=== PATIENT | male | born 1945 | race Caucasian/White ===

== ENCOUNTER 2024-08-24 18:53 | Emergency (ER) | payer MEDICARE, OTHER ==
[~2024-08-24] VITALS: Ht 175.3 cm; Wt 69.8 kg
[2024-08-24 19:20] VITALS: BP 179/112; PULSE 65; RESP 15; O2SAT 97
--- NOTE | 2024-08-24 19:55 | RADIOLOGY REPORT ---
Exam: DI ABDOMEN,SINGLE VIEW(KUB) Indication: constipation Comparison: None Technique: 2 radiographic views of the abdomen. Findings: Moderate colonic stool. Nonspecific bowel-gas pattern. There is no definite evidence for pneumoperitoneum. No abnormal calcifications noted. Impression: Moderate colonic stool. Nonspecific bowel-gas pattern.
[2024-08-24] MEDS: docusate sod 100mg capsule PO ONE (21:02)
[2024-08-24] MEDS: polyethylene glycol 3350 17gm powd pack PO ONE (21:02)
--- NOTE | 2024-08-24 21:31 | Physician Documentation ---
History of Present Illness ~ Chief Complaint: Constipation Stated Complaint: CONSTIPATION Time Seen by MD: 20:26 HPI This is a 78-year-old male who presents with a proximally four days of constipation patient reports he has not had a bowel movement in his time. Patient reports he is passing gas. Patient reports no fever and no nausea or vomiting. Reports no other acute symptoms or concerns Medication Reconciliation Allergies: Coded Allergies: No Known Allergies (Unverified , 08/24/24) Scheduled Bisacodyl (Bisacodyl), 1 SUPP RC DAILY Polyethylene Glycol 3350 (Miralax), 17 GM PO DAILY Past Medical History Past Medical History: No Pertinent History Review of Systems ROS Constipation as stated above in the HPI, otherwise all systems are reviewed and negative. Physical Exam Vital Signs: Temperature: 96.3, Source: Temporal, Heart Rate: 65, Respiratory Rate: 15, BP: 179/112, Pulse Oximetry: 97, Weight: 69.750 Physical Exam VITALS: Reviewed and as above. GENERAL: Alert, nontoxic appearing, no apparent distress. RESPIRATORY: No increased work of breathing, no respiratory distress, speaking in full clear sentences, clear lung sounds in all velez CV: Regular rate rhythm no murmur GI: Mild tenderness to palpation of lower abdomen otherwise no rebound, no guarding, soft, nondistended, bowel sounds present Progress Results/Orders Results/Orders Completed Orders - RAKESH RUIZ [employer] Polyethylene Glycol 3350 Pkt (Miralax Pa (08/24/24 21:00) Docusate Sod Capsule (Colace Capsule) (08/24/24 20:55) Medications Received in ER Medications (Trade) Dose Ordered Sig/Mica Route PRN Reason Start Time Stop Time Status Last Admin Dose Admin (Miralax packet) 17 gm HS ONCE PO 08/24/24 21:00 08/24/24 21:01 DC 08/24/24 21:02 17 GM (Colace capsule) 100 mg ONCE ONCE PO 08/24/24 20:55 08/24/24 20:57 DC 08/24/24 21:02 100 MG Vital Signs 08/24/24 08/24/24 19:20 21:35 Temp 96.3 96.3 Pulse 65 Resp 15 B/P (MAP) 179/112 Pulse Ox 97 EKG/XRAY/CT/US/VASC/MRI Abdominal X-Ray : Additional Comment Exam: DI ABDOMEN,SINGLE VIEW(KUB) Indication: constipation Comparison: None Technique: 2 radiographic views of the abdomen. Findings: Moderate colonic stool. Nonspecific bowel-gas pattern. There is no definite evidence for pneumoperitoneum. No abnormal calcifications noted. Impression: Moderate colonic stool. Nonspecific bowel-gas pattern. Electronically Signed by:IKER GARCIA MD Date & Time: 08/24/241951 Dictated by: IKER GARCIA MD Dictation date and time: 08/24/241951 I have reviewed and agree with the radiology report. I have reviewed and interpreted the imaging as: No air-fluid levels Medical Decision Making Findings This is an otherwise well-appearing 78-year-old male who presents with a four days of constipation, physical exam did not demonstrate significant abdominal tenderness and a abdominal x-ray did not demonstrate evidence to suggest bowel obstruction, it is reassuring patient reports still passing gas and bowel sounds were present. Remainder of physical exam benign. I have low suspicion for bowel obstruction or other intra-abdominal surgical emergency. Patient is appropriate for outpatient follow up. Patient to be treated with outpatient course of MiraLax and stool softeners. Patient provided careful return to care precautions and follow up instructions which he verbalized understanding of. Patient advised to increase fiber and fluid intake and provided home care instructions for constipation which he verbalized understanding of. Diff Dx Pain:Considerations: Include: Appendicitis, Bowel obstruction, Diverticular disease, Gastritis, Hernia, Inflammatory BD, Ischemic bowel, Testicular torsion, Urinary obstruction, Urinary tract infection, Urolithiasis Departure Disposition: HOME / SELF CARE / HOMELESS Impression: Primary Impression: Constipation Qualified Codes: K59.00 - Constipation, unspecified Condition: Improved Discharge Instructions: Constipation, Adult Additional Instructions: Please take the laxatives as prescribed. Please follow up with your primary care provider in the next few days. Please return to the emergency department for any new or worsening concerning symptoms including but not limited to worsening pain in her abdomen or if you began vomiting or stop passing gas. Referrals: NO PRIMARY CARE PROVIDER (PCP) Prescriptions Docusate Sodium (Docusate Sodium) 100 Mg Capsule 1 CAP PO DAILY for constipation for 30 Days, #30 CAP 0 Refills Prov: RAKESH RUIZ 08/25/24 Bisacodyl (Bisacodyl) 10 Mg Supp.rect 1 SUPP RC DAILY for constipation for 4 Days, #4 SUPP 0 Refills Prov: RAKESH RUIZ 08/24/24 Polyethylene Glycol 3350 (Miralax) 17 Gram/Dose Powder 17 GM PO DAILY for constipation, #255 GM 0 Refills dissolve in water Prov: RAKESH RUIZ 08/24/24 Education Educated: Patient, Family Educated regarding: diagnosis, treatment, prognosis, need for follow up Signature Scribe Signature: No scribe Attestation: The note accurately reflects work and decisions made by me.TOPHER Bhardwaj 08/25/24 02:17 RAKESH RUIZ [facility] Aug 24, 2024 21:31
[2024-08-24] MEDS ORDERED: POLY119P2 PO (21:33)
[2024-08-24] MEDS ORDERED: BISA10SU11 RC (21:33)
[2024-08-24 21:35] VITALS: TEMP 96.3
[2024-08-25] MEDS ORDERED: DOCU100C41 PO (02:14)
== END 2024-08-24 21:42 | disposition home or self-care (01) ==
LOC: ER 18:54
DX: K59.00 Constipation, unspecified (principal); Z79.899 Other long term (current) drug therapy
CPT/HCPCS: 74018; 99283

== ENCOUNTER 2024-08-26 09:50 | Inpatient (IN) | payer OTHER, MEDICARE ==
[~2024-08-26] VITALS: Ht 175.3 cm; Wt 93.8 kg
[~2024-08-26 09:50] MED LIST: BISA10SU11 RC; DOCU100C41 PO; POLY119P2 PO
--- NOTE | 2024-08-26 12:10 | Physician Documentation ---
History of Present Illness General Chief Complaint: Constipation Stated Complaint: CONSTIPATION Time Seen by MD: 12:02 History of Present Illness Initial Comments The patient is a 78-year-old male who presents with abdominal pain and constipation (his last bowel movement was one week ago). Reports that he does not normally get constipation. He did have a remote herniorrhaphy on his abd omen. He has not had any vomiting. He takes tamsulosin for BPH and something for indigestion, his only medications. Medication Reconciliation Allergies: Coded Allergies: No Known Allergies (Unverified , 08/26/24) Scheduled Bisacodyl (Bisacodyl), 1 SUPP RC DAILY Docusate Sodium (Docusate Sodium), 1 CAP PO DAILY Polyethylene Glycol 3350 (Miralax), 17 GM PO DAILY Past Medical History Past Medical History: No Pertinent History Review of Systems ROS Constitutional: Denies chills, fatigue, fever, weight gain or weight loss. HEENT: Denies hearing loss, sinus pressure or visual changes. Respiratory: Denies cough, shortness of breath or wheezing. Cardiovascular: Denies chest pain, pain while walking (claudication), edema or palpitations. Gastrointestinal: Central abdominal pain and constipation. Genitourinary: Denies painful urination (dysuria), excessive amount of urine (polyuria) or urinary frequency. Metabolic/Endocrine: Denies cold intolerance, heat intolerance, excessive thirst (polydipsia) or excessive hunger (polyphagia). Neurological: Denies dizziness, extremity numbness, extremity weakness, headaches, seizures or tremors. Psychiatric: Denies anxiety or depression. Integumentary: Denies breast discharge, breast lump, hives, mole change(s), rash or skin lesion. Musculoskeletal: Denies back pain, joint pain, joint swelling or neck pain. Hematologic: Denies easily bleeding, easily bruises, lymphedema or issues with blood clots. Immunologic: Denies food allergies or seasonal allergies. Physical Exam Physical Exam Vital Signs: Temperature: 97.6, Source: Temporal, Heart Rate: 68, Respiratory Rate: 15, BP: 154/97, Pulse Oximetry: 96, Weight: 90.700 Oxygen Flow Rate: 0 Physical Exam Physical Exam Vitals and nursing note reviewed. Constitutional: General: Patient is awake, alert, oriented x 4 in no acute distress and well appearing. Speech is clear and lucid. Appearance: Normal appearance. Patient is not ill-appearing, toxic-appearing or diaphoretic. HENT: Head: Normocephalic and atraumatic. Mouth/Throat: Mouth: Mucous membranes are moist. Pharynx: Oropharynx is clear. Eyes: General: No scleral icterus. Extraocular Movements: Extraocular movements intact. Pupils: Pupils are equal, round, and reactive to light. Neck: Supple, no Kernig or Brudzinski sign. Cardiovascular: Rate and Rhythm: Normal rate and regular rhythm. Heart sounds: No murmur heard. Pulmonary: Effort: No respiratory distress. Breath sounds: No wheezing, rhonchi or rales. Abdominal: General: There is no distension. Palpations: There is no fluid wave, hepatomegaly or mass. Tenderness: There is no abdominal tenderness. There is no guarding. Musculoskeletal: General: No swelling or deformity. Skin: Coloration: Skin is not jaundiced. Findings: No erythema or rash. Neurological: Mental Status: Patient is alert. Progress Results/Orders Results/Orders Orders - EVELINE MEJIA MD Ct Abdomen Pelvis (08/26/24 12:24) Page Hospitalist (08/26/24 14:32) Completed Orders - EVELINE MEJIA MD Ct Abdomen Pelvis (08/26/24 12:24) CMP (08/26/24 12:02) Cbc/Diff (08/26/24 12:02) Lipase (08/26/24 12:02) LA (08/26/24 12:02) Iohexol 300mg/Ml 100ml Inj. (Omnipaque-3 (08/26/24 12:14) Vital Signs 08/26/24 08/26/24 08/26/24 10:13 11:03 11:07 Temp 97.6 Pulse 78 68 Resp 18 15 15 B/P (MAP) 137/74 154/97 (116) Pulse Ox 96 96 O2 Flow Rate 0 Laboratory Tests Test 08/26/24 12:40 White Blood Count 6.7 Red Blood Count 4.37 L Hemoglobin 13.9 L Hematocrit 41.0 L Mean Corpuscular Volume 93.8 Mean Corpuscular Hemoglobin 31.8 H Mean Corpuscular Hemoglobin Concent 33.9 Red Cell Distribution Width 13.9 Platelet Count 88 L Mean Platelet Volume 10.3 Neutrophils (%) (Auto) 81.5 H Lymphocytes (%) (Auto) 8.2 L Monocytes (%) (Auto) 9.7 Eosinophils (%) (Auto) 0.3 Basophils (%) (Auto) 0.3 Neutrophils # (Auto) 5.5 Lymphocytes # (Auto) 0.6 L Monocytes # (Auto) 0.7 Eosinophils # (Auto) 0.0 Basophils # (Auto) 0.0 CBC Comment Sodium Level 135 Potassium Level 3.5 Chloride Level 102 Carbon Dioxide Level 26.3 Anion Gap 7 L Blood Urea Nitrogen 13 Creatinine 0.80 Estimated GFR/1.73 m2 > 90 BUN/Creatinine Ratio 16.3 Glucose Level 105 H Lactic Acid Level 0.8 Calcium Level 8.9 Total Bilirubin 0.7 Aspartate Amino Transf (AST/SGOT) 15 Alanine Aminotransferase (ALT/SGPT) 26 Alkaline Phosphatase 59 Total Protein 6.3 L Albumin 3.4 Globulin 2.9 Albumin/Globulin Ratio 1.2 Lipase 13 L Chemistry Comments Medical Decision Making Findings CT scan confirms constipation without evidence of bowel obstruction. There is a suspicious finding at the tail of the pancreas which may represent malignancy. The patient lives in [place], [place], about 100 miles he is to here. His P[facility] is in [place] [facility]. I feel it would benefit him to get his MRI as an inpatient here while being treated for his constipation which failed outpatient treatment is he was seen here three days ago without relief. Departure Disposition: ADMITTED INPATIENT Admitted to Inpatient Unit: to hospitalist Admission Level of Care: Med/Surg Impression: Primary Impression: Pancreatic abnormality Additional Impression: Constipation Condition: Stable Referrals: NO PRIMARY CARE PROVIDER (PCP) Signature Scribe Signature: . Attestation: . EVELINE MEJIA MD Aug 26, 2024 12:10
[2024-08-26] MEDS ORDERED: iohexol 300mg/ml 100ml inj. ONE (12:14)
[2024-08-26 12:58] LABS: MEAN PLATELET VOLUME 10.3 FL (7.4-10.4); RED CELL DISTRIBUTION WIDTH 13.9 % (11.5-14.5)
--- NOTE | 2024-08-26 13:01 | RADIOLOGY REPORT ---
CLINICAL INFORMATION: Pain. No bowel movement for 7 days. TECHNIQUE: Axial CT images of the abdomen and pelvis were obtained after the uneventful administrati on of 100 mL Omnipaque 300 IV contrast. Coronal and sagittal reformatted images were obtained, review ed, and stored. All CT scans at this medical facility are performed using dose modulation techniques as appropriate to a performed exam including the following: Automated exposure control was utilized; adjustment of the MA and/or KV according to patient size; and use of iterative reconstruction technShared Spectrum ue. CTDIvol = 22.47 mGy DLP = 1289.14 mGy-cm COMPARISON: Abdominal radiographs dated 08/24/2024. FINDINGS: Lung bases: Dependent atelectasis in the lung bases. Trace pericardial effusion. Liver: Multiple small low-density lesions in the liver, likely cysts, although some are too small to characterize. Trace perihepatic fluid. Biliary: No calcified gallstones or biliary ductal dilatation. Spleen: Unremarkable. Pancreas: There is hypo enhancement of the pancreatic tail with moderate adjacent stranding, involvin g an area measuring up to 3.4 x 2.7 cm. Malignancy not excluded. Adrenal glands: Unremarkable. No mass. Kidneys: Bilateral parapelvic cysts and small cortical cysts. No hydronephrosis. Aorta/Vascular: Dense atherosclerotic calcification. No abdominal aortic aneurysm. Retroperitoneum: Small subcentimeter para-aortic and interaortocaval lymph nodes. Fluid density struc ture along the anterior aspect of the left pelvic sidewall measuring up to 1.8 cm in greatest dimensi on of uncertain etiology possible duplication cyst, abutting the left external iliac vein. Bowel/mesentery: Nonspecific nondilated fluid-filled small bowel loops. No small bowel obstruction. A ppendix is not visualized. Large amount of stool throughout the colon. Diverticulosis of the rectosig moid colon without visualized adjacent inflammatory changes to suggest diverticulitis. Pelvic organs: Grossly unremarkable. Bladder: Unremarkable. No mass. Abdominal wall: Small to moderate fat containing supraumbilical ventral hernia. Mild stranding within the hernia sac. Strangulation not excluded. Bones: Postsurgical changes of open reduction internal fixation of the right hip with trochanteric na il and femoral neck screw visualized. The fracture is not united at this time. There is soft tissue e tom stranding along the superficial fascial plane overlying the lateral aspect of the right thigh mu sculature with focal peripherally enhancing fluid collection measuring up to 3 cm in greatest dimensi on. IMPRESSION: 1. Large amount of stool throughout the colon. 2. Nonspecific nondilated fluid-filled small bowel loops. Findings may be seen with ileus or enteriti s in the appropriate clinical setting. No small bowel obstruction. 3. Scattered colonic diverticula without adjacent inflammatory changes to suggest diverticulitis. 4. Focal area of hypo enhancement and stranding of the pancreatic tail, suspicious for malignancy. C orrelate with clinical findings. MRI without and with contrast pancreatic protocol could be obtained to further characterize if clinically indicated. 5. Small to moderate fat containing supraumbilical ventral hernia with mild stranding within the jean ia sac. Strangulation of the hernia not excluded. Correlate with clinical findings. 6. Fluid density structure along the left pelvic sidewall abutting the left external iliac vein, poss ible duplication cyst or other cyst. 7. Postsurgical changes of open reduction internal fixation of the right hip with stranding and edema along the subcutaneous tissues more focal peripherally enhancing fluid collection overlying the supe rficial fascial plane of the lateral aspect of the proximal right thigh musculature, possible postope rative collection or hematoma. Abscess can not be excluded in the appropriate clinical setting. Corre late with clinical findings. 8. Additional findings as described above.
[2024-08-26 13:07] LABS: CREATININE 0.80 MG/DL (0.60-1.10); TOTAL CARBON DIOXIDE 26.3 MMOL/L (24-32); eCRCL 76 ML/MIN; eGFR > 90 ML/MIN
[2024-08-26] MEDS ORDERED: magnesium Cl slow-release 64mg tablet PO PRN (15:00)
[2024-08-26] MEDS ORDERED: HYDROcodone/acetaminophen 5mg/325mg tablet PO PRN (15:00)
[2024-08-26] MEDS ORDERED: potassium Cl 20 mEq SR tablet PO PRN (15:00)
[2024-08-26] MEDS ORDERED: magnesium sulf-water 4G/100mL 100 ML IV PRN (15:00)
[2024-08-26] MEDS ORDERED: magnesium sulf-water 2g/50mL 50 ML IV PRN (15:00)
[2024-08-26] MEDS ORDERED: potassium Cl 40MEQ/1/2NS 520ml 520 ML IV PRN (15:00)
[2024-08-26] MEDS: normal saline 1000ml 1,000 ML IV SCH (15:31)
[2024-08-26] MEDS ORDERED: PEG 3350/Na sulf,bicarb,Cl/KCl oral sol 4 liter bottle PO ONE (15:50)
[2024-08-26 16:39] VITALS: BP 158/98; PULSE 67; RESP 14; TEMP 97.9; O2SAT 95
[2024-08-26] MEDS ORDERED: TAMS-55 PO (16:49)
[2024-08-26] MEDS ORDERED: OMEP40CA21 PO (16:50)
--- NOTE | 2024-08-26 18:41 | HISTORY AND PHYSICAL ---
History & Physical Providers to ~ History of Present Illness Reason for Admit\Complaint: Abdominal pain and constipation History of Present Illness Patient is 78-year-old male currently on Flomax and one indigestion pill. Patient is status post bilateral inguinal and ventral hernia repair which was done in 2008. He had his last colonoscopy around 62 years of age group which was normal. Patient was feeling nauseated but denied any episodes of vomiting and feeling fullness over abdomen. He mentioned to me that he is doing diet control but he feels that he is gaining weight. Abdomen pain is mainly located over ventral hernia site he is not able to pass the gas. Patient denied any fever or shaking chills. Patient's feels that since his prostate surgery he is urinating more and off and on incontinent. Patient denied any other symptoms no other associated or alleviating factors. Allergies: Coded Allergies: No Known Allergies (Unverified , 08/26/24) Home Medications Home Medications Active Reported Prilosec (Omeprazole) 40 Mg Capsule 1 Cap PO HS 30 Days Flomax* (Tamsulosin HCl) 0.4 Mg Cap.sr.24h 1 Cap PO HS 30 Days Past Medical History Past Medical History History of prostate cancer Past Surgical History Surgical History Comment History of bilateral inguinal hernia and ventral wall hernia repair. Past Social History Social History Comment Patient denied use of any alcohol tobacco or any recreational drug. He is able to ambulate lives by himself ROS ROS Review of system as mentioned above in HPI rest of the review of system unremarkable Exam Vitals: Vital Signs Date Time Temp Pulse Resp B/P (MAP) Pulse Ox O2 Delivery O2 Flow Rate FiO2 08/26/24 17:06 Room Air 0.0 08/26/24 16:39 97.9 67 14 158/98 (118) 95 General: General-patient not in any acute distress, alert awake oriented, chronically ill-appearing HEENT-atraumatic normocephalic, neck supple without elevated JVD, no thyromegaly or carotid bruit. No lymphadenopathy bilaterally. Eyes-no icterus or pallor seen in eyes Chest-clear to auscultation bilaterally, breathing nonlabored no tachypnea, no wheezing, no crepitation, no crackles. Heart-S1-S2 normal, regular heart rate no murmur Abdomen bowel sounds positive on auscultation, soft nondistended, no signs of acute peritonitis, signs of discomfort on palpation present over ventral wall hernia. no guarding, no rigidity Skin no active skin rash Neurology-grossly intact, nonfocal alert awake oriented Extremity- no pedal edema able to move all 4 extremities Psychiatry - patient is not confused or agitated cooperated during physical examination Diagnostic Data Last Recorded Lab Results: 08/26/24 1240 08/26/24 1240 Advance Care Planning Advanced Care plannin - 30 Minutes Additional Plan Patient is 78-year-old male currently on Flomax and one indigestion pill. Patient is admitted for severe constipation and abnormal CT scan results. ER provider ordered the CT scan abdomen and pelvis which showed, Large amount of stool throughout the colon.Nonspecific nondilated fluid-filled small bowel loops. Findings may be seen with ileus or enteritis in the appropriate clinical setting. No small bowel obstruction.Focal area of hypo enhancement and stranding of the pancreatic tail, suspicious for malignancy. Correlate with clinical findings. MRI without and with contrast pancreatic protocol could be obtained to further characterize if clinically indicated.Small to moderate fat containing supraumbilical ventral hernia with mild stranding within the hernia sac. Strangulation of the hernia not excluded. Patient's CT scan finding discussed with Dr. Baker who reviewed patient's imaging study results and not concerned about strangulation of ventral hernia. We will treat the patient for chronic constipation. GoLYTELY not available soap stud anymore ordered for constipation. We will continue to monitor patient's electrolyte when vitals. Patient's current condition is guarded further management depending on response to treatment I will continue to follow patient in a.m.. Code status discussed with the patient patient wishes to stay full code time spent in discussing code status 16 min. We will do the home medication reconciliation once updated in electronic medical record by nursing staff or pharmacist. Date of Service: Aug 26, 2024 Billing Provider: SHAYAN BARBOUR MD Common Visit Codes: 79078-SVNFEMP INP/OBS CARE (HIGH) Secondary Visit Codes: 64341-XEVUESIP CARE PLAN 30 MINUTES SHAYAN BARBOUR MD Aug 26, 2024 18:41
[2024-08-26 19:42] VITALS: BP 171/95; PULSE 82; RESP 19; TEMP 97.7; O2SAT 97
[2024-08-26] MEDS ORDERED: heparin, porcine 5000 units/ml vial SQ SCH (20:00)
[2024-08-26] MEDS: bisacodyl 10mg suppository rectal RC STA (21:51)
[2024-08-27] VITALS (7 sets, daily range): BP systolic 146–172; BP diastolic 90–101; PULSE 69–84; RESP 16–18; TEMP 97–98.7; O2SAT 94–97
[2024-08-27] MEDS: mineral oil 133ml enema RC PRN (01:25)
[2024-08-27 05:03] LABS: MEAN PLATELET VOLUME 10.0 FL (7.4-10.4); RED CELL DISTRIBUTION WIDTH 14.0 % (11.5-14.5)
[2024-08-27 05:11] LABS: CREATININE 0.72 MG/DL (0.60-1.10); TOTAL CARBON DIOXIDE 26.1 MMOL/L (24-32); eCRCL 85 ML/MIN; eGFR > 90 ML/MIN
[2024-08-27] MEDS: magnesium citrate 296ml oral solution PO ONE (08:50)
--- NOTE | 2024-08-27 13:00 | RADIOLOGY REPORT ---
Date: 08/27/2024 12:27 PM Examination: DI ABDOMEN,SINGLE VIEW(KUB) History: severe constipation Comparison: DI ABDOMEN,SINGLE VIEW(KUB) on DOS: 08/24/24 TECHNIQUE: Frontal views of the abdomen was obtained. FINDINGS: Gaseous distended loops of colon. The lung bases are unremarkable. No acute osseous abnormality identified. IMPRESSION: Nonspecific gas-filled loops of colon are visualized.
[2024-08-27] MEDS: pantoprazole 40mg Tablet.DR PO ONE (15:05)
[2024-08-27] MEDS: ondansetron/PF 4mg/2ml inj IV PRN (16:07)
[2024-08-27] MEDS: diatr meglu/diatrizoate 30ml oral sol.-(3 dose) bottle PO SCH (20:04)
--- NOTE | 2024-08-27 20:17 | PROGRESS NOTE ---
Daily Progress Note Providers to CC ~ Antibiotic Timeout Antibiotic Ordered?: No Subjective Patient was seen in his room he is still has not pass the stools even though he got the anemia, mineral oil enema, milk of magnesium and Dulcolax suppository. I ordered KUB in oral CT abdomen and pelvis. Patient was also concerned about acid reflux symptoms pantoprazole ordered. Patient's blood pressure elevated currently not on any hypertensive medication started on lisinopril. Objective Vital Signs Date Time Temp Pulse Resp B/P (MAP) Pulse Ox O2 Delivery O2 Flow Rate FiO2 08/27/24 18:00 98.7 77 18 161/100 (120) 97 Room Air 08/27/24 08:00 0.0 Result Diagram: 08/27/2443108/27/24 043 General-patient not in any acute distress, alert awake oriented, chronically ill-appearing HEENT-atraumatic normocephalic, neck supple without elevated JVD, no thyromegaly or carotid bruit. No lymphadenopathy bilaterally. Eyes-no icterus or pallor seen in eyes Chest-clear to auscultation bilaterally, breathing nonlabored no tachypnea, no wheezing, no crepitation, no crackles. Heart-S1-S2 normal, regular heart rate no murmur Abdomen bowel sounds positive on auscultation, soft , appear distended, no signs of acute peritonitis, signs of discomfort on palpation present over ventral wall hernia. no guarding, no rigidity Skin no active skin rash Neurology-grossly intact, nonfocal alert awake oriented Extremity- no pedal edema able to move all 4 extremities Psychiatry - patient is not confused or agitated cooperated during physical examination Problem\Assessment\Plan Patient is 78-year-old male currently on Flomax and one indigestion pill. Patient is admitted for severe constipation and abnormal CT scan results. # severe constipation- ER provider ordered the CT scan abdomen and pelvis which showed, Large amount of stool throughout the colon.Nonspecific nondilated fluid- filled small bowel loops. Findings may be seen with ileus or enteritis in the appropriate clinical setting. No small bowel obstruction.Focal area of hypo enhancement and stranding of the pancreatic tail, suspicious for malignancy. Correlate with clinical findings. MRI without and with contrast pancreatic protocol could be obtained to further characterize if clinically indicated. We will treat the patient for chronic constipation. GoLYTELY not available . he has not pass the stools even though he got the anemia, mineral oil enema, milk of magnesium and Dulcolax suppository. I ordered KUB in oral CT abdomen and pelvis. # abnormal CT scan findings- Small to moderate fat containing supraumbilical ventral hernia with mild stranding within the hernia sac. Strangulation of the hernia not excluded. Patient's CT scan finding discussed with Dr. Baker who reviewed patient's imaging study results and not concerned about strangulation of ventral hernia. # hypertension-lisinopril started today. We will continue to monitor patient's electrolyte when vitals. # hypokalemia we will do the replacement of potassium as per protocol # Code status discussed with the patient patient wishes to stay limited code he is okay with the CPR but does not want any intubation # home medication reconciliation updated in electronic medical record Patient's current condition is guarded further management depending on response to treatment I will continue to follow patient in a.m.. Date of Service: Aug 27, 2024 Billing Provider: SHAYAN BARBOUR MD Common Visit Codes: 95098-[id number] INP/OBS CARE(HIGH) SHAYAN BRABOUR MD Aug 27, 2024 20:17
[2024-08-27] MEDS: pantoprazole 40mg Tablet.DR PO SCH (21:28)
[2024-08-28 05:48] LABS: MEAN PLATELET VOLUME 10.3 FL (7.4-10.4); RED CELL DISTRIBUTION WIDTH 13.7 % (11.5-14.5)
[2024-08-28 06:00] VITALS: BP 134/89; PULSE 75; RESP 16; TEMP 97.3; O2SAT 96
[2024-08-28 06:15] LABS: CREATININE 1.02 MG/DL (0.60-1.10); TOTAL CARBON DIOXIDE 28.8 MMOL/L (24-32); eCRCL 60 ML/MIN; eGFR 71 ML/MIN
[2024-08-28 10:00] VITALS: BP 140/89; PULSE 71; RESP 18; TEMP 97.7; O2SAT 96
--- NOTE | 2024-08-28 11:41 | RADIOLOGY REPORT ---
CLINICAL INFORMATION: severe constipation. TECHNIQUE: Axial CT images of the abdomen and pelvis were obtained without IV contrast. Coronal and sagittal reformatted images were obtained, reviewed, and stored. Evaluation of the parenchymal organ s and vasculature is limited without IV contrast. Oral contrast was administered prior to the examina tion All CT scans at this medical facility are performed using dose modulation techniques as appropri ate to a performed exam including the following: Automated exposure control was utilized; adjustment of the MA and/or KV according to patient size; and use of iterative reconstruction technique. CTDIvol = 25.99 mGy DLP = 1386.24 mGy-cm COMPARISON: CT CT ABDOMEN PELVIS W/ IV CONTRAST on DOS: 08/26/24 FINDINGS: Lung Bases: Atelectasis in the lung bases. Small left pleural effusion. Liver: Multiple small low-density lesions in the liver, likely cysts, although some are too small to characterize. Trace perihepatic fluid. Biliary: Increased density in the gallbladder, likely vicarious excretion of contrast from the prior contrast enhanced CT exam. Spleen: Trace perisplenic fluid. Pancreas: There is fullness of the pancreatic tail corresponding to the area of previously seen hypo enhancement on the recent contrast enhanced CT exam. Malignancy not excluded. Adrenal glands: Unremarkable. No mass. Kidneys: Bilateral parapelvic cysts and small cortical cysts. No hydronephrosis no renal or ureteral calculi visualized. Aorta: Dense atherosclerotic calcification. No abdominal aortic aneurysm. Retroperitoneum: Small subcentimeter para-aortic and interaortocaval lymph nodes. Similar-appearing s mall fluid density structure along the left pelvic sidewall measuring up to 1.8 cm in greatest dimens ion, possible duplication cyst or other cyst. Bowel/mesentery: No small bowel obstruction. Contrast reaches the cecum at the time of imaging. Appen regino is not visualized. Large amount of stool throughout the colon with moderate colonic distention, m ildly increased compared to the prior exam, with the cecum measuring up to 10.7 cm in diameter and th e transverse colon measuring up to 6.3 cm in diameter. The sigmoid colon measures up to 6.6 cm in brandee meter. The rectum is nondistended, without focal transition identified to suggest colonic obstruction . Pelvic organs: Grossly unremarkable. Bladder: Small to moderate fat containing supraumbilical hernia with mild stranding in the hernia sac , similar to the prior exam. Abdominal wall: No mass or hernia. Bones: Postsurgical changes of open reduction internal fixation of the right hip partially visualized . Similar-appearing soft tissue stranding and small fluid collection with peripheral enhancement over lying the superficial fascial plane at the lateral aspect of the right thigh musculature. IMPRESSION: 1. Colonic distension with large amount of stool throughout the colon. The distention has increased compared to the prior exam. No focal colonic obstruction identified. 2. No small bowel obstruction. 3. Fullness of the pancreatic tail corresponding to the previously seen focal area of hypo enhancemen t recent contrast enhanced CT. Malignancy not excluded. 4. Stable postsurgical changes in the right hip. Focal fluid collection along the proximal lateral ri ght thigh musculature, possible postoperative collection or hematoma. Abscess not excluded in the shanell ropriate clinical setting. 5. Additional findings as described above, stable compared to the recent exam.
[2024-08-28] MEDS: metoclopramide 5 mg/ml inj IV PRN (14:14)
[2024-08-28] MEDS: GADOTERATE MEGLUMINE 7.5 MMOL/15 ML VIAL IV ONE (14:18)
--- NOTE | 2024-08-28 15:43 | RADIOLOGY REPORT ---
PROCEDURE: MR MRI ABDOMEN Indication: abnormal CT abdomen Pancreatic malignancy suspected COMPARISON: 08/26/2024 TECHNIQUE: Multiplanar multisequence images of the abdomen were obtained with and without contrast FINDINGS: Examination degraded by motion. Adrenal glands, spleen unremarkable. Heterogeneous appearance lesion within the pancreatic tail region measuring 4.8 x 2.3 cm correspondin g to the hypoenhancing lesion seen on prior CT. There is surrounding desmoplastic reaction. This lesi on also demonstrates hypoenhancement on this examination. No evidence for cholelithiasis. Right hepatic lobe cysts measuring 1.4 cm. There are multiple small T 2 bright lesions within the right and left hepatic lobes that are indeterminate measuring up to 10 mm in the left hepatic lobe, 4 mm in the right hepatic lobe. These lesions do not demonstrate enhanceme nt. Normal caliber common bile duct measuring 6 mm. Normal caliber pancreatic duct measuring 3 mm. There are bilateral renal peripelvic cysts. No hydronephrosis. Right renal cysts measuring up to 1.2 cm. Right renal hemorrhagic / proteinaceous cyst measuring 7 mm. Small to moderate hiatal hernia. Numerous gastric varices. The imaged small bowel loops are normal in caliber. Extensive fecal retention throughout the imaged portion of the large bowel. Tiny left pleural effusion. Bibasilar atelectasis / consolidation, cukv-fgbhycy-hpvh-right. Small amount of ascites fluid. Other findings as described. IMPRESSION: Heterogeneous hypoenhancing lesion/mass in the pancreatic tail measuring 4.8 x 2.3 cm with surroundin g desmoplastic reaction, highly concerning for a pancreatic neoplasm. Recommend GI and surgical consu ltation for further evaluation. This can be further evaluated with endoscopic ultrasound and PET-CT. Numerous gastric varices. Extensive /severe fecal retention within the large bowel. Previous CT demonstrates of the sigmoid col on. Recommend GI consultation to exclude any type of underlying sigmoid colon mass / malignancy. Small amount of ascites fluid. Multiple small hepatic T2 bright lesions, indeterminate.
[2024-08-28] MEDS: potassium Cl 20 mEq SR tablet PO PRN (16:10)
[2024-08-28 18:00] VITALS: BP 152/96; PULSE 80; RESP 16; TEMP 98.1; O2SAT 96
[2024-08-28 20:00] VITALS: RESP 16; O2SAT 96
--- NOTE | 2024-08-28 20:34 | PROGRESS NOTE ---
Daily Progress Note Providers to CC ~ Antibiotic Timeout Antibiotic Ordered?: No Subjective Patient was seen in his room his belly appeared more distended as compared to yesterday and he has not pass the stools yet. We will place the NG and Reglan started today . Patient will go for the MRI of abdomen today Objective Vital Signs Date Time Temp Pulse Resp B/P (MAP) Pulse Ox O2 Delivery O2 Flow Rate FiO2 08/28/24 10:00 97.7 71 18 140/89 (106) 96 Room Air 08/28/24 08:00 0.0 Result Diagram: 08/28/2445408/28/245 General-patient not in any acute distress, alert awake oriented, chronically ill-appearing HEENT-atraumatic normocephalic, neck supple without elevated JVD, no thyromegaly or carotid bruit. No lymphadenopathy bilaterally. Eyes-no icterus or pallor seen in eyes Chest-clear to auscultation bilaterally, breathing nonlabored no tachypnea, no wheezing, no crepitation, no crackles. Heart-S1-S2 normal, regular heart rate no murmur Abdomen bowel sounds positive on auscultation, soft , appear more distended, no signs of acute peritonitis, signs of discomfort on palpation present over abdomen no guarding, no rigidity Skin no active skin rash Neurology-grossly intact, nonfocal alert awake oriented Extremity- no pedal edema able to move all 4 extremities Psychiatry - patient is not confused or agitated cooperated during physical examination Problem\Assessment\Plan Patient is 78-year-old male currently on Flomax and one indigestion pill. Patient is admitted for severe constipation and abnormal CT scan results. # severe constipation- ER provider ordered the CT scan abdomen and pelvis which showed, Large amount of stool throughout the colon.Nonspecific nondilated fluid- filled small bowel loops. Findings may be seen with ileus or enteritis in the appropriate clinical setting. No small bowel obstruction.Focal area of hypo enhancement and stranding of the pancreatic tail, suspicious for malignancy. Correlate with clinical findings. MRI without and with contrast pancreatic protocol could be obtained to further characterize if clinically indicated. We will treat the patient for chronic constipation. GoLYTELY not available . he has not pass the stools even though he got the anemia, mineral oil enema, milk of magnesium and Dulcolax suppository. I ordered KUB in oral CT abdomen and pelvis. # abnormal CT scan findings- Small to moderate fat containing supraumbilical ventral hernia with mild stranding within the hernia sac. Strangulation of the hernia not excluded. Patient's CT scan finding discussed with Dr. Baker who reviewed patient's imaging study results and not concerned about strangulation of ventral hernia. # hypertension-lisinopril started. We will continue to monitor patient's electrolyte when vitals. # hypokalemia we will do the replacement of potassium as per protocol # Code status discussed with the patient patient wishes to stay limited code he is okay with the CPR but does not want any intubation # home medication reconciliation updated in electronic medical record Patient's current condition is guarded further management depending on response to treatment I will continue to follow patient in a.m.. Date of Service: Aug 28, 2024 Billing Provider: SHAYAN BARBOUR MD Common Visit Codes: [id number] INP/OBS CARE(HIGH) SHAYAN BARBOUR MD Aug 28, 2024 20:34
[2024-08-28] MEDS: PEG 3350/Na sulf,bicarb,Cl/KCl oral sol 4 liter bottle PO ONE (21:34)
[2024-08-28 22:00] VITALS: BP 135/90; PULSE 87; RESP 16; TEMP 98.4; O2SAT 96
[2024-08-29] VITALS (15 sets, daily range): BP systolic 115–169; BP diastolic 69–108; PULSE 78–90; RESP 16–29; TEMP 97.8–99.8; O2SAT 93–100
[2024-08-29 05:05] LABS: MEAN PLATELET VOLUME 10.3 FL (7.4-10.4); RED CELL DISTRIBUTION WIDTH 14.2 % (11.5-14.5)
[2024-08-29 05:35] LABS: CREATININE 0.86 MG/DL (0.60-1.10); TOTAL CARBON DIOXIDE 23.9 MMOL/L (24-32); eCRCL 71 ML/MIN; eGFR 86 ML/MIN
[2024-08-29] MEDS: HYDROcodone/acetaminophen 10/325mg tab PO PRN (11:58)
[2024-08-29] MEDS ORDERED: labetalol 20mg/4ml (5mg/ml) syringe IV PRN ×2 (15:45→18:25)
[2024-08-29] MEDS ORDERED: hydrALAZINE 20mg/ml inj. IV PRN ×2 (15:45→18:25)
[2024-08-29] MEDS ORDERED: fentaNYL/PF 50MCG/1 ML 2ML syringe IV PRN ×3 (15:45→18:35)
[2024-08-29] MEDS ORDERED: ondansetron/PF 4mg/2ml inj IV PRN ×2 (15:45→18:25)
[2024-08-29] MEDS ORDERED: morphine 4 MG/ML inj SYRINge IV PRN ×2 (15:45→18:25)
[2024-08-29] MEDS ORDERED: ringers solution, lacted 1,000 ML IV SCH (15:45)
--- NOTE | 2024-08-29 16:31 | ELECTROCARDIOGRAPH REPORT ---
[facility] Test Date: 2024-08-29 Test Time: 16:26:52 Pat Name: MANDY ALLEN Department: [facility] 4S Patient ID: [facility]-[id number] Room: [place] [id number] A Gender: M Co Teacher: VINNIE : 1945 Requested By: ALEE NICOLE Order Number: [id number] Reading MD: Measurements Intervals [place] Rate: 87 P: 46 OR: 136 QRS: 49 QRSD: 94 T: 19 QT: 355 QTc: 427 Interpretive Statements Sinus rhythm Borderline repolarization abnormality Baseline wander in lead(s) II Please click the below link to view image of tracing.
[2024-08-29] MEDS ORDERED: midazolam 1 mg/ML 2ml injection ONE (16:44)
--- NOTE | 2024-08-29 16:58 | CONSULTATION REPORT ---
History of Present Illness Providers to CC CC: RAKESH MCHUGH MD ~ Reason for Admit\Admit Dx: Abdominal pain and constipation History of Present Illness Seemingly, and historically relatively healthy 78-year-old gentleman presents to the emergency room with constipation. He states that his last colonoscopy was 15-18 years ago. Denies any history of constipation, however, does state that about a month or two ago when [place], he had some constipation on the drive home. Over the last month he also reports thin ribbon like stool. No black or bloody stool. No nausea or vomiting. States the last bowel movement was 10 days ago and he believes that was the last time he actually passed flatus. He was admitted a couple of days ago with constipation, and started on a bowel regimen. Workup included abdominal x- rays as well as a CT scan that raised a suspicion for possible pancreatic neoplasm. An MRI was recommended and performed. This showed, again, neoplasm in the tail of the pancreas concerning for malignancy. There were also multiple spots within the bilateral lobes of the liver suspicious for possible metastatic disease. Patient states a digital rectal exam has yet to be performed. He was started on bowel prep yesterday in hopes of doing a colonoscopy. He is complaining of severe abdominal pain and distention He confirms obstipation x8-10 days Allergies: Coded Allergies: No Known Allergies (Unverified , 08/26/24) Home Medications Home Medications Active Reported Prilosec (Omeprazole) 40 Mg Capsule 1 Cap PO HS 30 Days Flomax* (Tamsulosin HCl) 0.4 Mg Cap.sr.24h 1 Cap PO HS 30 Days Past Medical History Medical History Comment Gastroesophageal reflux disease History of prostate cancer Past Surgical History Surgical History Comment Bilateral inguinal hernia repair Past Family History Family History Comment Noncontributory Past Social History Social History Comment Not applicable Health Maintenance Health Maintenance Not applicable Physical Exam Last Vital Signs Recorded: RN Vital Signs have been reviewed: Yes, Temperature: 98.0, Source: Oral, Heart Rate: 89, Respiratory Rate: 15, BP: 157/101, Pulse Oximetry: 95, Weight: 90.700 General Appearance: alert, mild distress EENT: PERRL/EOMI; No: scleral icterus (R), scleral icterus (L) Neck: normal inspection, supple Respiratory: lungs clear Cardiovascular: regular rate, rhythm Gastrointestinal Abdomen is tense and significantly distended Diffusely tender to palpation No rebound tenderness Umbilical hernia-reducible Genitalia: normal, no hernias Rectal Rectal vault emptying No palpable fecal material Extremities: non-tender, no edema 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 Benign colorectal stricture is also a possibility. Either way, patient has reached the point where colonic perforation is impending. I believe urgent surgical intervention is indicated The risks, benefits, and alternatives to an exploratory laparotomy, possible bowel resection, possible creation of colostomy were discussed with the patient. The possibility of also having to create a mucous fistula was discussed. Patient verbalized understanding and agrees to proceed to the operating room urgently. We will do so as soon as possible. RAKESH MCHUGH MD Aug 29, 2024 16:58
[2024-08-29] MEDS ORDERED: NORepinephrine 8mg/ 250ml NS 250 ML IV ONE (17:12)
[2024-08-29] MEDS ORDERED: NORepinephrine 1 mg/ml inj IV ONE (17:12)
[2024-08-29] MEDS ORDERED: LIDOcaine 2% (20mg/ml) 5ml vial ONE (17:40)
[2024-08-29] MEDS ORDERED: fentaNYL /PF 50mcg/ml 5ml ampule ONE (17:40)
[2024-08-29] MEDS ORDERED: rocuronium 10mg/ml inj IV ONE (17:40)
[2024-08-29] MEDS ORDERED: propofol inj 20 ML IV ONE (17:40)
[2024-08-29] MEDS ORDERED: LIDOcaine 1% (10mg/ml) 2ml vial ONE (17:40)
[2024-08-29] MEDS ORDERED: 0.9 % SODIUM CHLORIDE 10 ML VIAL ONE (17:40)
[2024-08-29] MEDS ORDERED: ceFOXitin 1000 MG inj ONE ×2 (17:40)
[2024-08-29] MEDS ORDERED: acetaminophen 1,000mg/100ml IV 100 ML IV PRN (18:25)
[2024-08-29] MEDS ORDERED: meperidine/PF 25mg/ml syringe IV PRN (18:25)
[2024-08-29] MEDS ORDERED: HYDROmorphone/PF 0.2 MG/ML SYRINGE IV PRN ×2 (18:25)
[2024-08-29] MEDS: ringers solution, lacted 1,000 ML IV SCH (18:25)
--- NOTE | 2024-08-29 18:30 | CONSULTATION ---
DATE OF CONSULTATION: 08/29/2024 DICTATING PHYSICIAN: Fern Martinez MD REASONS FOR CONSULTATION: * Severe constipation. * Abnormal finding on the pancreas with CT scan and MRI of the abdomen. HISTORY OF PRESENT ILLNESS: The patient is 78 years old, has been having constipation for few weeks now, the last bowel movement was about a month ago. He has tried multiple laxatives, prune juice and prune without any significant success. He came in because of discomfort, abdominal pain and constipation. The imaging studies have shown fecal burden in the colon without any obstructing lesions. The patient has not had any rectal bleeding. He has been started on GoLYTELY, which he is unable to drink adequately. Incidentally, there was a questionable lesion in the tail of the pancreas. His colonoscopy was about 14-15 years ago. PAST MEDICAL HISTORY: History of prostate cancer. FAMILY HISTORY: Noncontributory. PERSONAL HISTORY: Noncontributory. REVIEW OF SYSTEMS: A 12-point review of systems same as history of present illness. PHYSICAL EXAMINATION: GENERAL: He is awake, alert, appears to be in no apparent distress. VITAL SIGNS: Normal. NECK: Supple. HEART: Normal. LUNGS: Normal. ABDOMEN: Soft, nontender. No masses. No organomegaly. Bowel sounds are present. IMPRESSION: * Elderly man admitted with severe constipation. * Incidental finding of possible neoplastic lesion the tail of the pancreas. I am not 100% sure looking at the report of the imaging studies. RECOMMENDATIONS: In view of the fact that he has tried multiple laxatives at home and has not had success, I agree with using GoLYTELY the colonoscopy prep for bowel evacuation. He probably will need more than a gallon of GoLYTELY for him to even start having bowel movements with the process that I have noticed since he has started the GoLYTELY. I have discussed this with the patient and the . At this time, there is no colonic obstruction. Once he is relieved with the constipation, we can bring him back as an outpatient and do diagnostic colonoscopy. I will be out of town until date and at the time discharge, please recommend for him to call my office and make an appointment. I would also recommend ordering tumor marker for the pancreatic cancer, CA 19-9. We will monitor with no further interventions at this time. Fern Martinez MD TID: [id number] RECEIPT: [id number] ADELINE
[2024-08-29] MEDS ORDERED: ipratropium/albuterol 3ml nebule NEB PRN (18:35)
[2024-08-29 18:59] LABS: ABG BASE EXCESS -4.5 mmol/L (-2.0-3.0); ABG HCO3 18.6 mmol/L (21.0-28.0); ABG OXYGEN SATURATION 95.2 % (94.0-98.0); ABG PCO2 (T) 28.2 mmHg (35.0-48.0); ABG PH (T) 7.432 (7.350-7.450); ABG PO2 (T) 67.4 mmHg (83.0-108.0); FCOHb 1.6 % (0.5-1.5); FHHb 4.7 % (0.0-5.0); FIO2 95.0 mmHg/%; FMetHb 0.3 % (0.0-1.5); FO2Hb 93.4 % (94.0-98.0); PATIENT TEMPERATURE 35.8; TOTAL HEMOGLOBIN 15.5 G/dl (13.5-17.5)
--- NOTE | 2024-08-29 20:09 | RADIOLOGY REPORT ---
CHEST RADIOGRAPH Indication: POST OP Technique: Single frontal view of the chest was obtained Comparison: None FINDINGS: Lines and Tubes: Endotracheal tube terminates about 0.7 cm above the akanksha. Enteric tube and right I J approach central venous catheter in satisfactory position. Lungs: Left medial upper to mid lung zone /perihilar opacity Obscuration of the left hemidiaphragm with linear density of the left lower lung zone No pneumothorax. Cardiomediastinal contours: Unremarkable Bones: No acute osseous abnormality. IMPRESSION: Endotracheal tube terminates about 0.7 cm above the akanksha. Recommend pulling back about 3 cm for mor e optimal positioning. Enteric tube and right IJ approach central venous catheter in satisfactory position. Obscuration of the left hemidiaphragm which is most likely from overlying cardiac silhouette. Underly ing effusion/ atelectasis / pneumonia can not be excluded. Left-sided perihilaropacity which may represent pneumonia /atelectasis.
[2024-08-29] MEDS: propofol 1000mg/100ml bottle 100 ML IV SCH (20:10)
[2024-08-29] MEDS: FENTANYL-0.9 % NACL/PF 100 ML IV SCH (20:10)
[2024-08-29 20:15] LABS: ABG BASE EXCESS -2.9 mmol/L (-2.0-3.0); ABG HCO3 19.4 mmol/L (21.0-28.0); ABG OXYGEN SATURATION 98.7 % (94.0-98.0); ABG PCO2 (T) 27.1 mmHg (35.0-48.0); ABG PH (T) 7.467 (7.350-7.450); ABG PO2 (T) 107.6 mmHg (83.0-108.0); FCOHb 1.1 % (0.5-1.5); FHHb 1.3 % (0.0-5.0); FIO2 100.0 mmHg/%; FMetHb 0.1 % (0.0-1.5); FO2Hb 97.5 % (94.0-98.0); MODE SIMV; PATIENT TEMPERATURE 35.7; PEEP 5 cm H2O; RESPIRATORY RATE 14 b/min; TIDAL VOLUME 550 mL; TOTAL HEMOGLOBIN 17.6 G/dl (13.5-17.5)
[2024-08-29 20:18] LABS: MEAN PLATELET VOLUME 10.2 FL (7.4-10.4); RED CELL DISTRIBUTION WIDTH 14.5 % (11.5-14.5)
--- NOTE | 2024-08-29 20:20 | CONSULTATION REPORT ---
History of Present Illness Reason for Admit\Admit Dx: Abdominal pain and constipation History of Present Illness 78 year old male with history of prostate Ca admitted with constipation and taken to the OR today for failure of medical management. He was found to have a possible mass in the rectum and his abdomen was left open with the goal of returning to the OR in 48 hours. He arrived to the ICU intubated and sedated, not on any vasopressors. Allergies: Coded Allergies: No Known Allergies (Unverified , 08/26/24) Home Medications Home Medications Active Reported Prilosec (Omeprazole) 40 Mg Capsule 1 Cap PO HS 30 Days Flomax* (Tamsulosin HCl) 0.4 Mg Cap.sr.24h 1 Cap PO HS 30 Days Past Medical History Medical History Comment prostate ca Physical Exam Last Vital Signs Recorded: Temperature: 99.8, Source: Oral, Heart Rate: 78, Respiratory Rate: 28, BP: 138/83, Pulse Oximetry: 98, Weight: 90.700 General Appearance: alert, mild distress EENT: PERRL/EOMI; No: scleral icterus (R), scleral icterus (L) Neck: normal inspection, supple Respiratory: lungs clear Cardiovascular: regular rate, rhythm Genitalia: normal, no hernias Extremities: non-tender, no edema 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, 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 Psychiatric: normal mood/affect; No: anxiety Skin: normal color Lymphatic: no adenopathy Review of Systems ROS ROS Comments: unable to obtain due to patient condition Results Diagram Lab Result Diagram: 08/29/24 0414 08/29/24 0414 Assessment/Plan Problems/Diagnosis: (1) Respiratory failure (2) Large bowel obstruction Assessment & Plan: Plan: continue sedation overnight NPO empiric abx full vent support repeat cbc and gas post surgery CCT 60 min using HIPPA compliant A/V technology Problem Qualifiers (1) Respiratory failure: Qualified Codes: J96.01 - Acute respiratory failure with hypoxia RAMON MOULTON MD Aug 29, 2024 20:20
--- NOTE | 2024-08-29 20:20 | OPERATIVE REPORT ---
Operative Report Providers to CC CC: SUNDAY MCHUGH MD ~ Date of Procedure: Aug 29, 2024 Pre-Operative Diagnosis: Large bowel obstruction Post-Operative Diagnosis Large bowel obstruction Procedure Performed Exploratory laparotomy Sigmoid colectomy Biopsy of pelvic mass Placement of wound [id number] Surgeon: Sunday Mchugh MD FACS Pile Driving Supervisor None Anesthesiologist: Jocelin Kapoor Type of Anesthesia: General Findings: Large bowel obstruction with massively distended entire colon down to the level of the proximal rectum Mass/lesion at the proximal rectum No evidence of colonic perforation Wound class III Complications None Prosthetics\Implants used: Intra-abdominal wound VAC components included a 10 10 fenestrated drape, two blue towels, and two flat Luigi drains Estimated Blood Loss: 50 cc Specimen Removed: Sigmoid colon with proximal rectum (this included the obstructing mass) Extra colonic pelvic mass implant Description of Procedure: Patient was brought urgently to the operating room with evidence of a large bowel obstruction. General anesthesia was induced. Central line was placed by anesthesia. Tinajero catheter was placed. Antibiotics were given and the abdomen was prepped and draped in the standard sterile fashion. Generous midline incision was made and the abdomen was entered. Immediately noted was a massively distended transverse colon. There was some serosal splitting but no evidence of mucosal outpouching or perforation. The entire colon was distended from the cecum to the rectosigmoid junction. Proximal rectum was palpable and there was a mass palpable and a transition point. Attempts at decompressing the colon were unsuccessful due to significant stool burden. The distal sigmoid colon was transected using a linear cutting stapler and the sigmoid colon was mobilized away from the pelvic inlet until adequate length for an end colostomy was achieved. Disc of skin was removed of the left rectus complex and muscle- splitting technique was used to deliver the staple line through the abdominal wa ll. The colon was opened and about 4 L of liquid stool was suctioned. Once the colon was mostly decompressed, attention was turned to the remaining sigmoid and rectosigmoid junction. I was able to mobilize distal to the mass and the proximal rectum was divided with the contour stapler. The remaining sigmoid and rectosigmoid junction was passed off the field with the included mass. Extra colonic evidence of malignancy was noted on the pelvic sidewall. This was biopsied and sent as pelvic mass/lesion. Abdomen was irrigated. The colostomy was matured. An intra-abdominal wound VAC consisting of a 10 10 fenestrated drape, blue towels and suctioned tubing was used to create the wound VAC. This was placed to suction after covering it with an Ioban dressing. Ostomy appliance was applied. Patient was transferred to the intensive care unit in guarded condition. Counts repoted as correct: Yes SUNDAY MCHUGH MD Aug 29, 2024 20:19
[2024-08-29 20:36] LABS: CREATININE 1.03 MG/DL (0.60-1.10); PHOSPHORUS 2.1 MG/DL (2.3-4.5); TOTAL CARBON DIOXIDE 20.8 MMOL/L (24-32); eCRCL 59 ML/MIN; eGFR 70 ML/MIN
--- NOTE | 2024-08-29 20:43 | PROGRESS NOTE ---
Daily Progress Note Providers to CC ~ Antibiotic Timeout Antibiotic Ordered?: No Subjective patient's constipation was not resolved despite of GoLYTELY consulted GI specialist Dr. Zaragoza and surgeon Dr. Baker. GI specialist Dr. Zaragoza r ecommended outpatient colonoscopy once patient is stable I discussed patient's diagnostic reports with him in visit today. Dr. Baker evaluated the patient and did Exploratory laparotomy Sigmoid colectomy , Biopsy of pelvic mass , Placement of wound KUC-nmgro-cytzizukw for Large bowel obstruction. Objective Vital Signs Date Time Temp Pulse Resp B/P (MAP) Pulse Ox O2 Delivery O2 Flow Rate FiO2 08/29/24 20:18 90 08/29/24 20:10 28 08/29/24 19:46 78 98 08/29/24 10:00 98.0 157/101 (119) Room Air 08/29/24 08:00 0.0 Result Diagram: 08/29/24200408/29/242004 General-patient not in any acute distress, alert awake oriented, chronically ill-appearing HEENT-atraumatic normocephalic, neck supple without elevated JVD, no thyromegaly or carotid bruit. No lymphadenopathy bilaterally. Eyes-no icterus or pallor seen in eyes Chest-clear to auscultation bilaterally, breathing nonlabored no tachypnea, no wheezing, no crepitation, no crackles. Heart-S1-S2 normal, regular heart rate no murmur Abdomen bowel sounds positive on auscultation, soft , appear more distended, no signs of acute peritonitis, signs of discomfort on palpation present over abdomen no guarding, no rigidity Skin no active skin rash Neurology-grossly intact, nonfocal alert awake oriented Extremity- no pedal edema able to move all 4 extremities Psychiatry - patient is not confused or agitated cooperated during physical examination Problem\Assessment\Plan Patient is 78-year-old male currently on Flomax and one indigestion pill. Patient is admitted for severe constipation and abnormal CT scan results. # severe constipation- ER provider ordered the CT scan abdomen and pelvis which showed, Large amount of stool throughout the colon.Nonspecific nondilated fluid- filled small bowel loops. Findings may be seen with ileus or enteritis in the appropriate clinical setting. No small bowel obstruction.Focal area of hypo enhancement and stranding of the pancreatic tail, suspicious for malignancy. Correlate with clinical findings. MRI without and with contrast pancreatic protocol could be obtained to further characterize if clinically indicated. We will treat the patient for chronic constipation. GoLYTELY not available . he has not pass the stools even though he got the anemia, mineral oil enema, milk of magnesium and Dulcolax suppository. I ordered KUB in oral CT abdomen and pelvis. 08/29/24-patient's constipation was not resolved despite of GoLYTELY consulted GI specialist Dr. Zaragoza and surgeon Dr. Baker. GI specialist Dr. aZragoza r ecommended outpatient colonoscopy once patient is stable I discussed patient's diagnostic reports with him in visit today. Dr. Baker evaluated the patient and did Exploratory laparotomy Sigmoid colectomy , Biopsy of pelvic mass , Placement of wound DVP-enbtq-qzgrmhwik for Large bowel obstruction. # abnormal CT scan findings- Small to moderate fat containing supraumbilical ventral hernia with mild stranding within the hernia sac. Strangulation of the hernia not excluded. Patient's CT scan finding discussed with Dr. Baker who reviewed patient's imaging study results and not concerned about strangulation of ventral hernia. # hypertension-lisinopril started. We will continue to monitor patient's electrolyte when vitals. # hypokalemia we will do the replacement of potassium as per protocol # Code status discussed with the patient patient wishes to stay limited code he is okay with the CPR but does not want any intubation # home medication reconciliation updated in electronic medical record Patient's current condition is guarded we will follow the patient in AM . Patient's current condition is guarded further management depending on response to treatment I will continue to follow patient in a.m.. Date of Service: Aug 29, 2024 Billing Provider: SHAYAN BARBOUR MD Common Visit Codes: [id number] INP/OBS CARE(HIGH) SHAYAN BARBOUR MD Aug 29, 2024 20:43
[2024-08-29 20:49] LABS: PLATELET ESTIMATE NORMAL
[2024-08-29 20:51] LABS: BANDS% (MANUAL) 23 % (0-10); LYMPHOCYTES % (MANUAL) 2 % (21-51); MONOCYTES % (MANUAL) 6 % (2-12); NEUTROPHILS % (MANUAL) 69 % (42-75)
[2024-08-29 20:52] LABS: LARGE PLATELETS FEW
[2024-08-29] MEDS: ringers solution, lacted 1,000 ML IV ONE (23:21)
[2024-08-30] VITALS (38 sets, daily range): BP systolic 68–136; BP diastolic 45–73; PULSE 70–135; RESP 14–23; O2SAT 93–100
[2024-08-30] MEDS: albumin (Human) 5% 250ml 250 ML IV ONE ×4 (01:24→19:57)
[2024-08-30 02:20] LABS: MEAN PLATELET VOLUME 9.3 FL (7.4-10.4); RED CELL DISTRIBUTION WIDTH 14.5 % (11.5-14.5)
[2024-08-30 02:39] LABS: CREATININE 0.91 MG/DL (0.60-1.10); TOTAL CARBON DIOXIDE 20.3 MMOL/L (24-32); eCRCL 67 ML/MIN; eGFR 81 ML/MIN
[2024-08-30 02:54] LABS: ABG BASE EXCESS -3.3 mmol/L (-2.0-3.0); ABG HCO3 18.1 mmol/L (21.0-28.0); ABG OXYGEN SATURATION 99.3 % (94.0-98.0); ABG PCO2 (T) 25.4 mmHg (35.0-48.0); ABG PH (T) 7.473 (7.350-7.450); ABG PO2 (T) 154.2 mmHg (83.0-108.0); FCOHb 1.3 % (0.5-1.5); FHHb 0.7 % (0.0-5.0); FIO2 60.0 mmHg/%; FMetHb 0.1 % (0.0-1.5); FO2Hb 97.9 % (94.0-98.0); MODE SIMV; PATIENT TEMPERATURE 37.9; PEEP 5 cm H2O; RESPIRATORY RATE 14 b/min; TIDAL VOLUME 550 mL; TOTAL HEMOGLOBIN 15.0 G/dl (13.5-17.5)
[2024-08-30 03:30] LABS: BANDS% (MANUAL) 43 % (0-10); LYMPHOCYTES % (MANUAL) 7 % (21-51); METAMYLEOCYTES% (MANUAL) 2 % (0-0); MONOCYTES % (MANUAL) 10 % (2-12); MYELOCYTES % (MANUAL) 1 % (0-0); NEUTROPHILS % (MANUAL) 37 % (42-75); PLATELET ESTIMATE NORMAL
--- NOTE | 2024-08-30 06:55 | RADIOLOGY REPORT ---
CHEST RADIOGRAPH Indication: ET Tube PLacement Technique: Single frontal view of the chest was obtained COMPARISON: DI CHEST,SINGLE VIEW on DOS: 08/29/24 FINDINGS: Lines and Tubes: Interval retraction of endotracheal tube such that the tip now projects approximatel y 2.8 cm above the level of the akanksha. Remaining lines and tubes unchanged. Lungs: Stable appearing left pleural effusion and moderate diffuse increased prominence of the pulmon arsenio vasculature. New mild pneumomediastinum adjacent to the aortic arch and left hilum. No pneumothorax. Cardiomediastinal contours: Unremarkable Bones: Unremarkable IMPRESSION: 1. Stable left pleural effusion and diffuse increased prominence of the pulmonary vasculature. 2. New mild pneumomediastinum adjacent to the aortic arch and superior to the left hilum. 3. Interval retraction of endotracheal tube as above with remaining lines and tubes unchanged.
[2024-08-30] MEDS: NORepinephrine 8mg/ 250ml NS 250 ML IV PRN (07:56)
[2024-08-30] MEDS ORDERED: potassium Cl 20 mEq SR tablet PO PRN ×2 (10:45)
--- NOTE | 2024-08-30 11:14 | PROGRESS NOTE- Residence ---
Progress Note - Resident Providers to CC Resident Creating Document: ILDA OLIVAS RES ~ Antibiotic Timeout Antibiotic Ordered?: No Subjective Seen and examined the patient at bedside. He was admitted for severe constipation, large bowel obstruction and underwent expiratory laparotomy with sigmoid colectomy with intra-abdominal wound VAC placement by Dr. Baker. Pelvic mass biopsy was sent. Going to the OR possibly on today. Objective Vital Signs Date Time Temp Pulse Resp B/P (MAP) Pulse Ox O2 Delivery O2 Flow Rate FiO2 08/30/24 09:22 76 14 100 45 08/30/24 09:00 99.5 126/66 (86) Mechanical Ventilator 08/29/24 08:00 0.0 Result Diagram: 08/30/2420908/30/24 0210 General-intubated and sedated with propofol and fentanyl. On mechanical ventilation with FiO2 of 45, peep of 5 HEENT-atraumatic normocephalic, neck supple without elevated JVD, no thyromegaly or carotid bruit. No lymphadenopathy bilaterally. Eyes-no icterus or pallor seen in eyes Respiratory system-clear to auscultation bilaterally, breathing nonlabored no tachypnea, no wheezing, no crepitation, no crackles. Cardiovascular system : S1-S2 normal, regular heart rate no murmur Gastrointestinal: bowel sounds sluggish heard .,soft , appear more distended, no signs of acute peritonitis, Skin no active skin rash Neurology-intubated and sedated Extremity- no pedal edema able to move all 4 extremities Advance Care Planning Advanced Care planning: Add on additional 30 min Plan Plan Severe constipation Large bowel obstruction Status post exploratory laparotomy with sigmoid colectomy on intra-abdominal wound VAC placement ,POD 1 Abdominal ventral wall hernia Plan per Dr. Baker and Dr. Moe -may likely go to the OR on today Mechanically intubated and ventilated with SIMV mode- FiO2 of 45, peep of 5 with respiratory rate of 14 and currently on sedation of fentanyl and propofol abnormal CT scan findings- Small to moderate fat containing supraumbilical ventral hernia with mild stranding within the hernia sac. Strangulation of the hernia not excluded. Patient's CT scan finding discussed with Dr. Baker who reviewed patient's imaging study results and not concerned about strangulation of ventral hernia. Received cefazolin. Received f human albumin 500 mL Hypertension Blood pressures are stable with Levophed. Continue to monitor blood pressure with a target of less than 130 Hypokalemia Potassium is 3.3 Replacing per protocol Prostate cancer Was on home medications of tamsulosin 0.4 mg Code status: Limited Diet: Lines/tubes: PT: Ordered Pulses: Guarded Date of Service: Aug 30, 2024 Billing Provider: LEX LEMONS MD, VENKATESH, [facility] Aug 30, 2024 11:14
--- NOTE | 2024-08-30 17:07 | PROGRESS NOTE ---
Progress Note Dictate Providers to CC ~ Progress Note: Plan for return to the operating room tomorrow. Reexploration, possible bowel resection, possible ostomy revision Dr. Moe covering for the weekend. Antibiotic Ordered?: N/A Objective Vitals Vital Signs Date Time Temp Pulse Resp B/P (MAP) Pulse Ox O2 Delivery O2 Flow Rate FiO2 08/30/24 17:00 100.0 124 22 96/57 (70) 99 Mechanical Ventilator 45 08/29/24 08:00 0.0 Lab Results: 08/30/24 0210 08/30/24 0210 Problem\Assessment\Plan Problems/Diagnosis: (1) Large bowel obstruction RAKESH MCHUGH MD Aug 30, 2024 17:07
[2024-08-30] MEDS: amiodarone/D5 360MG/200ML BAG 200 ML IV SCH (18:37)
--- NOTE | 2024-08-30 18:40 | PROGRESS NOTE ---
Daily Progress Note Providers to CC ~ Antibiotic Timeout Antibiotic Ordered?: No Subjective Patient is seen in CICU today in presence of patient's son and plbsejtr-yw-otz. Patient responded to verbal commands awake. Patient is status post Exploratory laparotomy Sigmoid colectomy , Biopsy of pelvic mass , Placement of wound NDV-dcuei-jupegbjni for Large bowel obstruction. Objective Vital Signs Date Time Temp Pulse Resp B/P (MAP) Pulse Ox O2 Delivery O2 Flow Rate FiO2 08/30/24 17:00 100.0 124 22 96/57 (70) 99 Mechanical Ventilator 45 08/29/24 08:00 0.0 Result Diagram: 08/30/24 0210 08/30/24 0210 General-patient is awake , chronically ill-appearing , responded to verbal commends HEENT-atraumatic normocephalic, neck supple no elevated JVD, No lymphadenopathy bilaterally. Eyes-no icterus or pallor seen in eyes Chest-clear to auscultation bilaterally, breathing nonlabored no tachypnea, no wheezing, no crepitation, no crackles. Heart-S1-S2 normal, regular heart rate no murmur Abdomen - no bowel sounds on auscultation, soft , surgical wound present over midline over abdomen with drain, signs of tenderness on palpation present over abdomen no guarding, no rigidity Neurology-patient responded well to verbal commands cooperated during physical exam Extremity- no pedal edema Problem\Assessment\Plan Patient is 78-year-old male currently on Flomax and one indigestion pill. Patient is admitted for severe constipation and abnormal CT scan results. # severe constipation- ER provider ordered the CT scan abdomen and pelvis which showed, Large amount of stool throughout the colon.Nonspecific nondilated fluid- filled small bowel loops. Findings may be seen with ileus or enteritis in the appropriate clinical setting. No small bowel obstruction.Focal area of hypo enhancement and stranding of the pancreatic tail, suspicious for malignancy. Correlate with clinical findings. MRI without and with contrast pancreatic protocol could be obtained to further characterize if clinically indicated. We will treat the patient for chronic constipation. GoLYTELY not available . he has not pass the stools even though he got the anemia, mineral oil enema, milk of magnesium and Dulcolax suppository. I ordered KUB in oral CT abdomen and pelvis. 08/29/24-patient's constipation was not resolved despite of GoLYTELY consulted GI specialist Dr. Zaragoza and surgeon Dr. Baker. GI specialist Dr. Zaragoza r ecommended outpatient colonoscopy once patient is stable I discussed patient's diagnostic reports with him in visit today. Dr. Baker evaluated the patient and did Exploratory laparotomy Sigmoid colectomy , Biopsy of pelvic mass , Placement of wound AKX-mzjir-[id number] for Large bowel obstruction. 08/30/24-patient will go for Reexploration, possible bowel resection, possible ostomy revision to be done by Dr. Lama # abnormal CT scan findings- Small to moderate fat containing supraumbilical ventral hernia with mild stranding within the hernia sac. Strangulation of the hernia not excluded. Patient's CT scan finding discussed with Dr. Baker who reviewed patient's imaging study results and not concerned about strangulation of ventral hernia. # hypertension-lisinopril started. We will continue to monitor patient's electrolyte when vitals. 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
[2024-08-30] MEDS: mineral oil/petrolatum ophthal oint EACHEYE SCH (20:18)
[2024-08-30] MEDS: VASOPRESSIN 20 UNITS/NS 100mL 100 ML IV PRN (21:23)
--- NOTE | 2024-08-30 21:53 | PROGRESS NOTE ---
Progress Note Dictate Providers to CC ~ Progress Note: Started on amiodarone for a fib, remains intubated and sedated. taken off levophed. Plan: NPO OR in am continue amiodarone continue zosyn follow final cultures CCT 45 min using HIPPA compliant A/V technology Antibiotic Ordered?: Yes Objective Vitals Vital Signs Date Time Temp Pulse Resp B/P (MAP) Pulse Ox O2 Delivery O2 Flow Rate FiO2 08/30/24 21:03 109 14 100 40 08/30/24 20:00 100.4 103/69 (80) Mechanical Ventilator 08/29/24 08:00 0.0 Lab Results: 08/30/24 0210 08/30/24 0210 Problem\Assessment\Plan Problems/Diagnosis: (1) Respiratory failure (2) Large bowel obstruction Problem Qualifiers (1) Respiratory failure: Qualified Codes: J96.01 - Acute respiratory failure with hypoxia RAMON MOULTON MD Aug 30, 2024 21:53
[2024-08-30] MEDS: piperacillin/tazo 4.5gm/100ml 100 ML IV SCH (23:54)
[2024-08-31] VITALS (34 sets, daily range): BP systolic 92–172; BP diastolic 56–95; PULSE 52–108; RESP 13–29; O2SAT 93–100
[2024-08-31 02:44] LABS: MEAN PLATELET VOLUME 9.7 FL (7.4-10.4); RED CELL DISTRIBUTION WIDTH 14.6 % (11.5-14.5)
[2024-08-31 02:45] LABS: CREATININE 1.06 MG/DL (0.60-1.10); PHOSPHORUS 2.1 MG/DL (2.3-4.5); TOTAL CARBON DIOXIDE 22.8 MMOL/L (24-32); eCRCL 57 ML/MIN; eGFR 68 ML/MIN
[2024-08-31] MEDS: potassium Cl 40MEQ/270ML bag 270 ML IV PRN (03:10)
[2024-08-31] MEDS: potassium Cl 40MEQ/270ML bag 270 ML IV ONE (03:10)
[2024-08-31 03:35] LABS: ABG BASE EXCESS -4.3 mmol/L (-2.0-3.0); ABG HCO3 18.0 mmol/L (21.0-28.0); ABG OXYGEN SATURATION 98.1 % (94.0-98.0); ABG PCO2 (T) 26.7 mmHg (35.0-48.0); ABG PH (T) 7.450 (7.350-7.450); ABG PO2 (T) 108.8 mmHg (83.0-108.0); ALLEN'S TEST Modified; FCOHb 0.9 % (0.5-1.5); FHHb 1.9 % (0.0-5.0); FIO2 30.0 mmHg/%; FMetHb 0.3 % (0.0-1.5); FO2Hb 96.9 % (94.0-98.0); MODE VENT - SIMV; PATIENT TEMPERATURE 37.4; PEEP 5 cm H2O; RESPIRATORY RATE 14 b/min; TIDAL VOLUME 550 mL; TOTAL HEMOGLOBIN 13.4 G/dl (13.5-17.5)
--- NOTE | 2024-08-31 06:22 | PROGRESS NOTE ---
Progress Note Dictate Providers to CC ~ Progress Note: Wound-Vac with moderate output. Schedule for OR today Central Line/PICC still needed: Yes Tinajero Indications Met/Not Met: F/C Indications Met Antibiotic Ordered?: Yes Subjective Subjective Critically ill Objective Vitals Vital Signs Date Time Temp Pulse Resp B/P (MAP) Pulse Ox O2 Delivery O2 Flow Rate FiO2 08/31/24 06:00 99.1 54 14 132/76 (94) 100 Mechanical Ventilator 30 08/29/24 08:00 0.0 Lab Results: 08/31/24 0203 08/31/24 0203 Objective Heart: S1-2 reg Lungs: decrease BS at bases Abd: wound-vac in place Ext: No edema Neuro: sedated Problem\Assessment\Plan Additional Plan 1-Resp Failure NOT related to surgical procedure -F/U ABG 2-S/P Sigmoid colectomy + Pelvic mass biopsy -Supportive Tx -Await path results 3-Sepsis -Broad spectrum abx Karli Zheng CC time 35min Sepsis Screening Reassessment Date: Aug 31, 2024 LEX ZHENG MD Aug 31, 2024 06:22
--- NOTE | 2024-08-31 06:29 | RADIOLOGY REPORT ---
CHEST RADIOGRAPH Indication: INTUBATED Technique: Single frontal view of the chest was obtained COMPARISON: DI CHEST,SINGLE VIEW on DOS: 08/30/24, DI CHEST,SINGLE VIEW on DOS: 08/29/24 FINDINGS: Lines and Tubes: Endotracheal tube, enteric catheter and right central venous catheter in satisfactor y position. Lungs: Congestion Pleura: No effusion. No pneumothorax. Cardiomediastinal contours: Unremarkable Bones: Unremarkable IMPRESSION: Lines and tubes in satisfactory position. No significant interval change.
[2024-08-31] MEDS: K and/or MAG REPLACEMENT MC SCH (06:54)
[2024-08-31] MEDS ORDERED: magnesium sulf-water 2g/50mL 50 ML IV PRN (07:20)
[2024-08-31] MEDS ORDERED: sodium phosphate inj. 30 MMOL in dextrose 5%-water 250 ML IV PRN (07:20)
[2024-08-31] MEDS ORDERED: magnesium sulf-water 4G/100mL 100 ML IV PRN (07:20)
[2024-08-31] MEDS: COMMUNICATION ORDER 1 EA MISC MC ONE (07:26)
[2024-08-31] MEDS: sodium phosphate inj. 15 MMOL in dextrose 5%-water 250 ML IV PRN (08:55)
[2024-08-31 10:18] LABS: MEAN PLATELET VOLUME 9.7 FL (7.4-10.4); RED CELL DISTRIBUTION WIDTH 14.7 % (11.5-14.5)
[2024-08-31 10:25] LABS: PHOSPHORUS 1.7 MG/DL (2.3-4.5)
--- NOTE | 2024-08-31 11:33 | PROGRESS NOTE ---
Progress Note ID Providers to CC ~ Progress Note Progress Note: discussed procedure including risks/benefits/alternatives JARROD CEVALLOS MD Aug 31, 2024 11:33
[2024-08-31] MEDS ORDERED: fentaNYL /PF 50mcg/ml 5ml ampule ONE (12:25)
[2024-08-31] MEDS ORDERED: MIDAZolam 1 MG/ML 5ML VIAL ONE (12:25)
[2024-08-31] MEDS ORDERED: rocuronium 10mg/ml inj IV ONE (12:48)
[2024-08-31] MEDS ORDERED: labetalol 20mg/4ml (5mg/ml) syringe IV ONE (13:15)
--- NOTE | 2024-08-31 14:58 | OPERATIVE REPORT ---
Operative Report Providers to CC CC: JARROD CEVALLOS MD ~ Date of Procedure: Aug 31, 2024 Pre-Operative Diagnosis: S/P LAP/OPEN ABD Post-Operative Diagnosis SAME as PRE-Op Procedure Performed REPEAT LAP/SEROSAL REPAIR/CLOSURE Surgeon: BAN CORONEL Anesthesiologist: Roberto Hernandez Type of Anesthesia: General Findings: COLONIC SEROSAL INJURIES Estimated Blood Loss: 100 MK Specimen Removed: NONE JARROD CEVALLOS MD Aug 31, 2024 14:58
[2024-08-31 15:54] LABS: ABG BASE EXCESS -3.2 mmol/L (-2.0-3.0); ABG HCO3 18.5 mmol/L (21.0-28.0); ABG OXYGEN SATURATION 96.1 % (94.0-98.0); ABG PCO2 (T) 25.1 mmHg (35.0-48.0); ABG PH (T) 7.486 (7.350-7.450); ABG PO2 (T) 76.9 mmHg (83.0-108.0); ALLEN'S TEST POSITIVE; FCOHb 1.1 % (0.5-1.5); FHHb 3.8 % (0.0-5.0); FIO2 25.0 mmHg/%; FMetHb 0.3 % (0.0-1.5); FO2Hb 94.8 % (94.0-98.0); MODE VENT - SIMV; PATIENT TEMPERATURE 37.1; PEEP 5 cm H2O; RESPIRATORY RATE 14 b/min; TIDAL VOLUME 550 mL; TOTAL HEMOGLOBIN 13.1 G/dl (13.5-17.5)
[2024-08-31] MEDS: hydrALAZINE 20mg/ml inj. IV PRN (15:59)
--- NOTE | 2024-08-31 17:57 | PROGRESS NOTE ---
Daily Progress Note Providers to CC ~ Antibiotic Timeout Antibiotic Ordered?: Yes Subjective Patient was seen in CICU he responded to verbal commands. Patient's platelet count low, wound VAC present over abdomen liquid stools noticed in colostomy bag Objective Vital Signs Date Time Temp Pulse Resp B/P (MAP) Pulse Ox O2 Delivery O2 Flow Rate FiO2 08/31/24 17:53 20 08/31/24 17:06 74 98 25 08/31/24 15:15 168/93 08/31/24 10:58 99.9 Mechanical Ventilator 08/29/24 08:00 0.0 Result Diagram: 08/31/24 1000 08/31/24 1000 General-patient is awake , chronically ill-appearing , responded to verbal commends HEENT-atraumatic normocephalic, neck supple no elevated JVD, No lymphadenopathy bilaterally. Eyes-no icterus or pallor seen in eyes Chest-clear to auscultation bilaterally, breathing nonlabored no tachypnea, no wheezing, no crepitation, no crackles. Heart-S1-S2 normal, regular heart rate no murmur Abdomen - no bowel sounds on auscultation, soft , surgical wound present over midline over abdomen with drain, colostomy bag in place, signs of tenderness on palpation present over abdomen no guarding, no rigidity Neurology-patient responded well to verbal commands cooperated during physical exam Extremity- no pedal edema Coagulation Studies Laboratory Tests Test 08/31/24 10:00 Activated Partial Thromboplast Time 31 SECONDS (22-32) Problem\Assessment\Plan Patient is 78-year-old male currently on Flomax and one indigestion pill. Patient is admitted for severe constipation and abnormal CT scan results. # severe constipation- ER provider ordered the CT scan abdomen and pelvis which showed, Large amount of stool throughout the colon.Nonspecific nondilated fluid- filled small bowel loops. Findings may be seen with ileus or enteritis in the appropriate clinical setting. No small bowel obstruction.Focal area of hypo enhancement and stranding of the pancreatic tail, suspicious for malignancy. Correlate with clinical findings. MRI without and with contrast pancreatic protocol could be obtained to further characterize if clinically indicated. We will treat the patient for chronic constipation. GoLYTELY not available . he has not pass the stools even though he got the anemia, mineral oil enema, milk of magnesium and Dulcolax suppository. I ordered KUB in oral CT abdomen and pelvis. 08/29/24-patient's constipation was not resolved despite of GoLYTELY consulted GI specialist Dr. Zaragoza and surgeon Dr. Baker. GI specialist Dr. Zaragoza r ecommended outpatient colonoscopy once patient is stable I discussed patient's diagnostic reports with him in visit today. Dr. Baker evaluated the patient and did Exploratory laparotomy Sigmoid colectomy , Biopsy of pelvic mass , Placement of wound SAG-[id number]-[id number] for Large bowel obstruction. 08/30/24-patient will go for Reexploration, possible bowel resection, possible ostomy revision to be done by Dr. Lama # abnormal CT scan findings- Small to moderate fat containing supraumbilical ventral hernia with mild stranding within the hernia sac. Strangulation of the hernia not excluded. Patient's CT scan finding discussed with Dr. Baker who reviewed patient's imaging study results and not concerned about strangulation of ventral hernia. # hypertension-lisinopril started. We will continue to monitor patient's electrolyte when vitals. # hypokalemia we will do the replacement of potassium as per protocol # Code status discussed with the patient patient wishes to stay limited code he is okay with the CPR but does not want any intubation # home medication reconciliation updated in electronic medical record Patient's current condition is guarded further management as per surgical team and access spec and we will follow the patient along with them Date of Service: Aug 31, 2024 Billing Provider: SHAYAN BARBOUR MD Common Visit Codes: [id number] INP/OBS CARE(MOD) SHAYAN BARBOUR MD Aug 31, 2024 17:57
--- NOTE | 2024-08-31 18:36 | OPERATIVE REPORT ---
DATE OF SURGERY: 08/31/2024 DICTATING PHYSICIAN: Osvaldo Moe MD PREOPERATIVE DIAGNOSIS: Status post laparotomy with open abdomen. POSTOPERATIVE DIAGNOSIS: Status post laparotomy with open abdomen. PROCEDURES PERFORMED: * Repeat laparotomy. * Repair of serosal tears. * Abdominal wound closure. SURGEON: Osvaldo Moe MD SISAL OPERATOR: None. ANESTHESIA: General/Dr. Hernandez. DRAINS: None. INDICATIONS FOR OPERATION: A 78-year-old male status post laparotomy, underwent sigmoid resection for large bowel obstruction. The patient left open, taken back to surgery for sacral laparotomy and possible closure. INTRAOPERATIVE FINDINGS: The patient had a few serosal tears, which were easily repaired. DESCRIPTION OF PROCEDURE: The patient was placed supine on the operating room table. After induction of general anesthesia, the abdomen was prepped and draped. Timeout was performed, abdomen explored. There were serosal tears in the cecum and the right colon, easily repaired using 3-0 silk and a TA-60 stapler. The bowel ____ was examined and found to be unremarkable. Abdomen was copiously irrigated with large amount of antibiotic-containing solution. Rectal facia was closed with running suture of looped PDS. ____ sutures of #2 nylon were placed as well to reinforce the closure. Skin was closed with clips, packing placed, and dressing applied. Colostomy appliance placed. The patient was transferred back to the ICU in critical condition. Osvaldo Moe MD TID: [id number] RECEIPT: [id number] RALPH/EVE/SERGEY
--- NOTE | 2024-08-31 22:02 | PROGRESS NOTE ---
Progress Note Dictate Providers to CC ~ Progress Note: Problem list: Bowel perforation respiratory failure Plan: amio discontinued NPO plan for possible return to OR tomorrow full vent support continue low dose sedation with fentanyla nd propofol continue mIVF with NS CCT 55 min using HIPPA compliant A/V technology Antibiotic Ordered?: Yes Objective Vitals Vital Signs Date Time Temp Pulse Resp B/P (MAP) Pulse Ox O2 Delivery O2 Flow Rate FiO2 08/31/24 20:52 71 14 97 25 08/31/24 20:00 Mechanical Ventilator 08/31/24 19:00 100.4 92/56 (68) 08/29/24 08:00 0.0 Lab Results: 08/31/24 1000 08/31/24 1000 Coagulation Studies Laboratory Tests Test 08/31/24 10:00 Activated Partial Thromboplast Time 31 SECONDS (22-32) Problem\Assessment\Plan Problems/Diagnosis: (1) Respiratory failure (2) Large bowel obstruction Problem Qualifiers (1) Respiratory failure: Qualified Codes: J96.01 - Acute respiratory failure with hypoxia RAMON MOULTON MD Aug 31, 2024 22:02
[2024-09-01] VITALS (32 sets, daily range): BP systolic 87–155; BP diastolic 53–103; PULSE 63–99; RESP 12–24; O2SAT 96–99
[2024-09-01 02:53] LABS: ABG BASE EXCESS -3.9 mmol/L (-2.0-3.0); ABG HCO3 18.8 mmol/L (21.0-28.0); ABG OXYGEN SATURATION 97.1 % (94.0-98.0); ABG PCO2 (T) 27.9 mmHg (35.0-48.0); ABG PH (T) 7.447 (7.350-7.450); ABG PO2 (T) 94.0 mmHg (83.0-108.0); ALLEN'S TEST Modified; FCOHb 1.3 % (0.5-1.5); FHHb 2.9 % (0.0-5.0); FIO2 25.0 mmHg/%; FMetHb 0.3 % (0.0-1.5); FO2Hb 95.5 % (94.0-98.0); MODE VENT - SIMV; PATIENT TEMPERATURE 37.1; PEEP 5 cm H2O; RESPIRATORY RATE 14 b/min; TIDAL VOLUME 550 mL; TOTAL HEMOGLOBIN 12.7 G/dl (13.5-17.5)
[2024-09-01 02:55] LABS: CREATININE 1.01 MG/DL (0.60-1.10); PHOSPHORUS 2.3 MG/DL (2.3-4.5); TOTAL CARBON DIOXIDE 21.9 MMOL/L (24-32); eCRCL 60 ML/MIN; eGFR 71 ML/MIN
[2024-09-01 02:56] LABS: MEAN PLATELET VOLUME 10.2 FL (7.4-10.4); RED CELL DISTRIBUTION WIDTH 15.0 % (11.5-14.5)
[2024-09-01] MEDS: potassium Cl 40MEQ/270ML bag 270 ML IV ONE (03:42)
--- NOTE | 2024-09-01 06:29 | PROGRESS NOTE ---
Progress Note Dictate Providers to CC ~ Progress Note: S/P Re-exploratory laparotomy. Good ostomy output Central Line/PICC still needed: Yes Tinajero Indications Met/Not Met: F/C Indications Met Antibiotic Ordered?: Yes Subjective Subjective Comfortable Objective Vitals Vital Signs Date Time Temp Pulse Resp B/P (MAP) Pulse Ox O2 Delivery O2 Flow Rate FiO2 09/01/24 06:00 98.4 74 12 115/73 (87) 98 09/01/24 05:00 Mechanical Ventilator 30 08/29/24 08:00 0.0 Lab Results: 09/01/24 0200 09/01/24 0200 Objective Heart: S1-2 reg Lungs: decrease BS at bases Abd: wound-vac in place Ext: No edema Neuro: sedated Coagulation Studies Laboratory Tests Test 08/31/24 10:00 Activated Partial Thromboplast Time 31 SECONDS (22-32) Problem\Assessment\Plan Additional Plan 1-Resp Failure NOT related to surgical procedure -Extubate 2-S/P Sigmoid colectomy + Pelvic mass biopsy -Supportive Tx -Await path results 3-Sepsis -Broad spectrum abx Karli Zheng CC time 35min Sepsis Screening Reassessment Date: Sep 01, 2024 LEX ZHENG MD Sep 01, 2024 06:29
--- NOTE | 2024-09-01 09:20 | RADIOLOGY REPORT ---
CHEST RADIOGRAPH Indication: ET Tube PLacement Technique: DI CHEST,SINGLE VIEW COMPARISON: None FINDINGS: Right IJ catheter tip projects over the SVC. Nasogastric tube projects towards stomach. Endotracheal tube tip projects 3.8 cm above the akanksha. The cardiac silhouette is enlarged. The lungs demonstrate bilateral patchy airspace opacities. The pu lmonary vasculature is prominent. Moderate left and small right pleural effusions. There is no pneumo thorax. IMPRESSION: As above
--- NOTE | 2024-09-01 13:10 | PROGRESS NOTE ---
Progress Note ID Providers to CC ~ Progress Note Progress Note: sedated/vss/abd-mild distention-stoma viable/labs noted a/p 1. s/p sigmoid resection-slow progress/wean vent-supportive care JARROD CEVALLOS MD Sep 01, 2024 13:10
--- NOTE | 2024-09-01 20:00 | PROGRESS NOTE ---
Daily Progress Note Providers to CC ~ Antibiotic Timeout Antibiotic Ordered?: Yes Subjective Patient was seen in CICU he responded to verbal commands. Patient's platelet count low, wound VAC present over abdomen liquid stools noticed in colostomy bag Objective Vital Signs Date Time Temp Pulse Resp B/P (MAP) Pulse Ox O2 Delivery O2 Flow Rate FiO2 09/01/24 19:00 100.4 96 15 122/78 (93) 96 Nasal Cannula 1.0 09/01/24 13:36 98 Result Diagram: 09/01/24 0200 09/01/24 1311 General-patient is awake , chronically ill-appearing , responded to verbal commends HEENT-atraumatic normocephalic, neck supple no elevated JVD, No lymphadenopathy bilaterally. Eyes-no icterus or pallor seen in eyes Chest-clear to auscultation bilaterally, breathing nonlabored no tachypnea, no wheezing, no crepitation, no crackles. Heart-S1-S2 normal, regular heart rate no murmur Abdomen - no bowel sounds on auscultation, soft , surgical wound present over midline over abdomen with drain, colostomy bag in place, signs of tenderness on palpation present over abdomen no guarding, no rigidity Neurology-patient responded well to verbal commands cooperated during physical exam Extremity- no pedal edema Coagulation Studies Laboratory Tests Test 08/31/24 10:00 Activated Partial Thromboplast Time 31 SECONDS (22-32) Problem\Assessment\Plan Patient is 78-year-old male currently on Flomax and one indigestion pill. Patient is admitted for severe constipation and abnormal CT scan results. # severe constipation- ER provider ordered the CT scan abdomen and pelvis which showed, Large amount of stool throughout the colon.Nonspecific nondilated fluid- filled small bowel loops. Findings may be seen with ileus or enteritis in the appropriate clinical setting. No small bowel obstruction.Focal area of hypo enhancement and stranding of the pancreatic tail, suspicious for malignancy. Correlate with clinical findings. MRI without and with contrast pancreatic protocol could be obtained to further characterize if clinically indicated. We will treat the patient for chronic constipation. GoLYTELY not available . he has not pass the stools even though he got the anemia, mineral oil enema, milk of magnesium and Dulcolax suppository. I ordered KUB in oral CT abdomen and pelvis. 08/29/24-patient's constipation was not resolved despite of GoLYTELY consulted GI specialist Dr. Zaragoza and surgeon Dr. Baker. GI specialist Dr. Zaragoza r ecommended outpatient colonoscopy once patient is stable I discussed patient's diagnostic reports with him in visit today. Dr. Baker evaluated the patient and did Exploratory laparotomy Sigmoid colectomy , Biopsy of pelvic mass , Placement of wound [id number] for Large bowel obstruction. 08/30/24-patient will go for Reexploration, possible bowel resection, possible ostomy revision to be done by Dr. Lama # abnormal CT scan findings- Small to moderate fat containing supraumbilical ventral hernia with mild stranding within the hernia sac. Strangulation of the hernia not excluded. Patient's CT scan finding discussed with Dr. Baker who reviewed patient's imaging study results and not concerned about strangulation of ventral hernia. # hypertension-lisinopril started. We will continue to monitor patient's electrolyte when vitals. 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
[2024-09-02] VITALS (24 sets, daily range): BP systolic 132–156; BP diastolic 72–100; PULSE 76–97; RESP 15–28; O2SAT 90–98
[2024-09-02 02:28] LABS: MEAN PLATELET VOLUME 9.6 FL (7.4-10.4); RED CELL DISTRIBUTION WIDTH 14.7 % (11.5-14.5)
[2024-09-02 02:42] LABS: CREATININE 0.60 MG/DL (0.60-1.10); PHOSPHORUS 1.6 MG/DL (2.3-4.5); TOTAL CARBON DIOXIDE 19.6 MMOL/L (24-32); eCRCL 101 ML/MIN; eGFR > 90 ML/MIN
[2024-09-02] MEDS: potassium Cl 20mEq/100mL bag 100 ML IV SCH ×4 (03:11→05:54)
[2024-09-02 09:07] LABS: BASOPHILS % (MANUAL) 1.0 % (0-1); EOSINOPHILS % (MANUAL) 1.0 % (0-6); LYMPHOCYTES % (MANUAL) 2.0 % (21-51); MONOCYTES % (MANUAL) 9.0 % (2-12); NEUTROPHILS % (MANUAL) 87.0 % (42-75)
[2024-09-02 09:08] LABS: PLATELET ESTIMATE DECREASED
[2024-09-02 09:59] LABS: CREATININE 0.80 MG/DL (0.60-1.10); TOTAL CARBON DIOXIDE 21.6 MMOL/L (24-32); eCRCL 76 ML/MIN; eGFR > 90 ML/MIN
--- NOTE | 2024-09-02 19:21 | PROGRESS NOTE ---
Daily Progress Note Providers to CC ~ Antibiotic Timeout Antibiotic Ordered?: Yes Subjective The patient is doing well postop though he does want the NG tube out he has approximally 400 cc out in the last 24 hours-the patient is off of pressors and is extubated Objective Vital Signs Date Time Temp Pulse Resp B/P (MAP) Pulse Ox O2 Delivery O2 Flow Rate FiO2 09/02/24 18:00 99.7 85 23 140/81 (100) 92 Room Air 09/02/24 07:00 1.0 09/01/24 13:36 98 Result Diagram: 09/02/24 0218 09/02/24 0925 Gen. No acute distress alert and oriented 4 Lungs clear to ascultation bilaterally, no wheezes rales or rhonchi appreciated Heart normal sinus rhythm no murmurs rubs or clicks noted Abdomen soft nontender bowel sounds are normoactive Lower extremities no clubbing cyanosis, nor edema appreciated bilaterally Coagulation Studies Laboratory Tests Test 08/31/24 10:00 Activated Partial Thromboplast Time 31 SECONDS (22-32) Problem\Assessment\Plan Patient is 78-year-old male currently on Flomax and one indigestion pill. Patient is admitted for severe constipation and abnormal CT scan results. # severe constipation- ER provider ordered the CT scan abdomen and pelvis which showed, Large amount of stool throughout the colon.Nonspecific nondilated fluid- filled small bowel loops. Findings may be seen with ileus or enteritis in the appropriate clinical setting. No small bowel obstruction.Focal area of hypo enhancement and stranding of the pancreatic tail, suspicious for malignancy. Correlate with clinical findings. MRI without and with contrast pancreatic protocol could be obtained to further characterize if clinically indicated. We will treat the patient for chronic constipation. GoLYTELY not available . he has not pass the stools even though he got the anemia, mineral oil enema, milk of magnesium and Dulcolax suppository. I ordered KUB in oral CT abdomen and pelvis. 08/29/24-patient's constipation was not resolved despite of GoLYTELY consulted GI specialist Dr. Zaragoza and surgeon Dr. Baker. GI specialist Dr. Zaragoza r ecommended outpatient colonoscopy once patient is stable I discussed patient's diagnostic reports with him in visit today. Dr. Baker evaluated the patient and did Exploratory laparotomy Sigmoid colectomy , Biopsy of pelvic mass , Placement of wound [id number] for Large bowel obstruction. 08/30/24-patient will go for Reexploration, possible bowel resection, possible ostomy revision to be done by Dr. Lama 09/02/24 the patient went for a repeat laparotomy with repair of serosal tears and abdominal wound closure with Dr. Moe on 08/31/2024. NG tube remains in place for suctioning # abnormal CT scan findings- Small to moderate fat containing supraumbilical ventral hernia with mild stranding within the hernia sac. Strangulation of the hernia not excluded. Patient's CT scan finding discussed with Dr. Baker who reviewed patient's imaging study results and not concerned about strangulation of ventral hernia. # hypertension-lisinopril started. We will continue to monitor patient's electrolyte when vitals. 09/02 off of pressors # hypokalemia on potassium placement protocol # Code status discussed with the patient patient wishes to be a DNR code status # home medication reconciliation updated in electronic medical record # hypernatremia- normal saline was discontinued Date of Service: Sep 02, 2024 Billing Provider: GISSELLE VANEGAS DO Common Visit Codes: [id number] INP/OBS CARE(HIGH) GISSELLE VANEGAS DO Sep 02, 2024 19:21
[2024-09-03] VITALS (13 sets, daily range): BP systolic 129–166; BP diastolic 72–95; PULSE 57–83; RESP 17–26; TEMP 98; O2SAT 92–97
[2024-09-03 02:32] LABS: MEAN PLATELET VOLUME 9.5 FL (7.4-10.4); RED CELL DISTRIBUTION WIDTH 14.8 % (11.5-14.5)
[2024-09-03 02:44] LABS: CREATININE 0.82 MG/DL (0.60-1.10); PHOSPHORUS 2.6 MG/DL (2.3-4.5); TOTAL CARBON DIOXIDE 25.7 MMOL/L (24-32); eCRCL 74 ML/MIN; eGFR > 90 ML/MIN
[2024-09-03] MEDS ORDERED: potassium Cl 20mEq/100mL bag 100 ML IV SCH (03:00)
[2024-09-03] MEDS: potassium Cl 20mEq/100mL bag 100 ML IV SCH (03:42)
[2024-09-03 04:46] LABS: BANDS% (MANUAL) 1.0 % (0-10); EOSINOPHILS % (MANUAL) 2.0 % (0-6); LYMPHOCYTES % (MANUAL) 3.0 % (21-51); METAMYLEOCYTES% (MANUAL) 1.0 % (0-0); MONOCYTES % (MANUAL) 8.0 % (2-12); NEUTROPHILS % (MANUAL) 85.0 % (42-75)
[2024-09-03 04:48] LABS: PLATELET ESTIMATE DECREASED
[2024-09-03] MEDS ORDERED: HYDROmorph/NS 0.2 mg/ml PCA 100 ML IV SCH (17:45)
[2024-09-03] MEDS ORDERED: PCA WASTE DOCUMENTATION 1 MG ML MC SCH (17:45)
--- NOTE | 2024-09-03 17:51 | PROGRESS NOTE ---
Progress Note Dictate Providers to CC ~ Progress Note: Subsequent surgical care POD 5/3 s/p ex lap, sigmoid colectomy/planned takeback for closure Extubated Pathology pending N/v after ngt removed incision intact stoma viable with gas and stool sips no oral pain meds or electrolyte replacement ng back in with severe n/v Antibiotic Ordered?: Yes Objective Vitals Vital Signs Date Time Temp Pulse Resp B/P (MAP) Pulse Ox O2 Delivery O2 Flow Rate FiO2 09/03/24 10:00 81 26 149/93 (111) 93 Nasal Cannula 2.0 09/03/24 08:00 99.9 09/01/24 13:36 98 Lab Results: 09/03/24 0210 09/03/24 1654 Coagulation Studies Laboratory Tests Test 08/31/24 10:00 Activated Partial Thromboplast Time 31 SECONDS (22-32) Problem\Assessment\Plan Problems/Diagnosis: (1) Large bowel obstruction RAKESH MCHUGH MD Sep 03, 2024 17:51
[2024-09-03] MEDS: HYDROmorphone inj. 0.5 MG/0.5 ML DISP.SYRIN IV ONE (18:10)
[2024-09-03] MEDS: HYDROmorph/NS 0.2 mg/ml PCA 100 ML IV SCH (19:00)
[2024-09-03] MEDS: potassium Cl 40MEQ/1/2NS 520ml 520 ML IV PRN (20:14)
--- NOTE | 2024-09-03 23:14 | PROGRESS NOTE ---
Daily Progress Note Providers to CC ~ Antibiotic Timeout Antibiotic Ordered?: Yes Subjective The patient is NG tube was removed last evening the patient is doing relatively well though he was nauseated earlier and this resolved with Compazine the patient is tolerating a clear liquid diet thus far has not had return to bowel function yet Objective Vital Signs Date Time Temp Pulse Resp B/P (MAP) Pulse Ox O2 Delivery O2 Flow Rate FiO2 09/03/24 10:00 81 26 149/93 (111) 93 Nasal Cannula 2.0 09/03/24 08:00 99.9 09/01/24 13:36 98 Result Diagram: 09/03/24 0210 09/03/24 1654 Gen. No acute distress alert and oriented 4 Lungs clear to ascultation bilaterally, no wheezes rales or rhonchi appreciated Heart normal sinus rhythm no murmurs rubs or clicks noted Abdomen midline staple line and suture are present Lower extremities no clubbing cyanosis, nor edema appreciated bilaterally Coagulation Studies Laboratory Tests Test 08/31/24 10:00 Activated Partial Thromboplast Time 31 SECONDS (22-32) Problem\Assessment\Plan Patient is 78-year-old male currently on Flomax and one indigestion pill. Patient is admitted for severe constipation and abnormal CT scan results. # severe constipation- ER provider ordered the CT scan abdomen and pelvis which showed, Large amount of stool throughout the colon.Nonspecific nondilated fluid- filled small bowel loops. Findings may be seen with ileus or enteritis in the appropriate clinical setting. No small bowel obstruction.Focal area of hypo enhancement and stranding of the pancreatic tail, suspicious for malignancy. Correlate with clinical findings. MRI without and with contrast pancreatic protocol could be obtained to further characterize if clinically indicated. We will treat the patient for chronic constipation. GoLYTELY not available . he has not pass the stools even though he got the anemia, mineral oil enema, milk of magnesium and Dulcolax suppository. I ordered KUB in oral CT abdomen and pelvis. 08/29/24-patient's constipation was not resolved despite of GoLYTELY consulted GI specialist Dr. Zaragoza and surgeon Dr. Baker. GI specialist Dr. Zaragoza r ecommended outpatient colonoscopy once patient is stable I discussed patient's diagnostic reports with him in visit today. Dr. Baker evaluated the patient and did Exploratory laparotomy Sigmoid colectomy , Biopsy of pelvic mass , Placement of wound [id number] for Large bowel obstruction. 08/30/24-patient will go for Reexploration, possible bowel resection, possible ostomy revision to be done by Dr. Lama 09/02/24 the patient went for a repeat laparotomy with repair of serosal tears and abdominal wound closure with Dr. Moe on 08/31/2024. NG tube remains in place for suctioning 09/03/2024 NG tube has been removed on a clear liquid diet # abnormal CT scan findings- Small to moderate fat containing supraumbilical ventral hernia with mild stranding within the hernia sac. Strangulation of the hernia not excluded. Patient's CT scan finding discussed with Dr. Baker who reviewed patient's imaging study results and not concerned about strangulation of ventral hernia. # hypertension-lisinopril started. We will continue to monitor patient's electrolyte when vitals. 09/02 off of pressors Added PRN IV hydralazine # hypokalemia on potassium placement protocol # Code status discussed with the patient patient wishes to be a DNR code status # home medication reconciliation updated in electronic medical record # hypernatremia- on D5 W drip Disposition: [facility] in [place] Date of Service: Sep 03, 2024 Billing Provider: GISSELLE VANEGAS DO Common Visit Codes: [id number] INP/OBS CARE(HIGH) GISSELLE VANEGAS DO Sep 03, 2024 23:14
[2024-09-04 06:30] VITALS: BP 152/91; PULSE 71; RESP 23; TEMP 97.3; O2SAT 99
[2024-09-04] MEDS ORDERED: magnesium sulf-water 2g/50mL 50 ML IV PRN (08:45)
[2024-09-04] MEDS ORDERED: magnesium sulf-water 4G/100mL 100 ML IV PRN (08:45)
[2024-09-04] MEDS ORDERED: potassium Cl 40MEQ/1/2NS 520ml 520 ML IV PRN (08:45)
[2024-09-04 09:08] LABS: MEAN PLATELET VOLUME 9.9 FL (7.4-10.4); RED CELL DISTRIBUTION WIDTH 14.9 % (11.5-14.5)
[2024-09-04 09:17] LABS: CREATININE 0.72 MG/DL (0.60-1.10); TOTAL CARBON DIOXIDE 25.2 MMOL/L (24-32); eCRCL 85 ML/MIN; eGFR > 90 ML/MIN
[2024-09-04] MEDS: potassium Cl 20 mEq SR tablet PO PRN (10:21)
[2024-09-04 11:30] VITALS: BP 156/93; PULSE 73; RESP 19; TEMP 97.5; O2SAT 98
[2024-09-04 18:00] VITALS: BP 158/92; PULSE 68; RESP 17; TEMP 97; O2SAT 98
[2024-09-04] MEDS: lactose-reduced food (Ensure Enlive) - 237ml bottle PO SCH (18:00)
--- NOTE | 2024-09-04 18:11 | PROGRESS NOTE ---
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 slight prolapse Full liquids Tylenol for pain Medical management per hospitalist service Antibiotic Ordered?: Yes Objective Vitals Vital Signs Date Time Temp Pulse Resp B/P (MAP) Pulse Ox O2 Delivery O2 Flow Rate FiO2 09/04/24 13:00 18 09/04/24 11:30 97.5 73 156/93 (114) 98 Nasal Cannula 1.0 09/01/24 13:36 98 Lab Results: 09/04/24 0543 09/04/24 0543 Coagulation Studies Laboratory Tests Test 08/31/24 10:00 Activated Partial Thromboplast Time 31 SECONDS (22-32) Problem\Assessment\Plan Problems/Diagnosis: (1) Large bowel obstruction RAKESH MCHUGH MD Sep 04, 2024 18:10
[2024-09-04] MEDS: K and/or MAG REPLACEMENT MC SCH (19:36)
--- NOTE | 2024-09-04 20:26 | PROGRESS NOTE ---
Daily Progress Note Providers to CC ~ Antibiotic Timeout Antibiotic Ordered?: Yes Subjective The patient is not eating much his diet has been advanced to full liquid diet per Dr. Baker the patient will likely be able to be discharged in a couple of days Objective Vital Signs Date Time Temp Pulse Resp B/P (MAP) Pulse Ox O2 Delivery O2 Flow Rate FiO2 09/04/24 13:00 18 09/04/24 11:30 97.5 73 156/93 (114) 98 Nasal Cannula 1.0 09/01/24 13:36 98 Result Diagram: 09/04/24 0543 09/04/24 0543 Gen. No acute distress alert and oriented 4 Lungs clear to ascultation bilaterally, no wheezes rales or rhonchi appreciated Heart normal sinus rhythm no murmurs rubs or clicks noted Abdomen midline staple line and retention suture are present Lower extremities no clubbing cyanosis, nor edema appreciated bilaterally Coagulation Studies Laboratory Tests Test 08/31/24 10:00 Activated Partial Thromboplast Time 31 SECONDS (22-32) Problem\Assessment\Plan Patient is 78-year-old male currently on Flomax and one indigestion pill. Patient is admitted for severe constipation and abnormal CT scan results. Small-bowel obstruction secondary to large colon mass- colon cancer # severe constipation- ER provider ordered the CT scan abdomen and pelvis which showed, Large amount of stool throughout the colon.Nonspecific nondilated fluid- filled small bowel loops. Findings may be seen with ileus or enteritis in the appropriate clinical setting. No small bowel obstruction.Focal area of hypo enhancement and stranding of the pancreatic tail, suspicious for malignancy. Correlate with clinical findings. MRI without and with contrast pancreatic protocol could be obtained to further characterize if clinically indicated. We will treat the patient for chronic constipation. GoLYTELY not available . he has not pass the stools even though he got the anemia, mineral oil enema, milk of magnesium and Dulcolax suppository. I ordered KUB in oral CT abdomen and pelvis. 08/29/24-patient's constipation was not resolved despite of GoLYTELY consulted GI specialist Dr. Zaragoza and surgeon Dr. Baker. GI specialist Dr. Zaragoza r ecommended outpatient colonoscopy once patient is stable I discussed patient's diagnostic reports with him in visit today. Dr. Baker evaluated the patient and did Exploratory laparotomy Sigmoid colectomy , Biopsy of pelvic mass , Placement of wound [id number] for Large bowel obstruction. 08/30/24-patient will go for Reexploration, possible bowel resection, possible ostomy revision to be done by Dr. Lama 09/02/24 the patient went for a repeat laparotomy with repair of serosal tears and abdominal wound closure with Dr. Moe on 08/31/2024. NG tube remains in place for suctioning 09/03/2024 NG tube has been removed on a clear liquid diet 09/04/2024 diets advanced to a full liquid per Dr. Baker the patient has a # abnormal CT scan findings- Small to moderate fat containing supraumbilical ventral hernia with mild stranding within the hernia sac. Strangulation of the hernia not excluded. Patient's CT scan finding discussed with Dr. Baker who reviewed patient's imaging study results and not concerned about strangulation of ventral hernia. # hypertension-lisinopril started. We will continue to monitor patient's electrolyte when vitals. 09/02 off of pressors Added PRN IV hydralazine 09/04 uncontrolled add amlodipine 10 mg now and 10 mg daily # hypokalemia on potassium placement protocol # Code status discussed with the patient patient wishes to be a DNR code status # home medication reconciliation updated in electronic medical record # hypernatremia- on D5 W drip 09/04/2024 improving- D5W drip has been discontinued [facility] [place] continue PT- per Dr. Baker surgeon the patient may be ready in a couple of days to be discharged. Date of Service: Sep 04, 2024 Billing Provider: GISSELLE VANEGAS DO Common Visit Codes: [id number] INP/OBS CARE(HIGH) GISSELLE VANEGAS DO Sep 04, 2024 20:26
[2024-09-04 22:00] VITALS: BP 142/91; PULSE 73; RESP 18; TEMP 97.5; O2SAT 98
[2024-09-05 04:38] LABS: MEAN PLATELET VOLUME 10.2 FL (7.4-10.4); RED CELL DISTRIBUTION WIDTH 14.3 % (11.5-14.5)
[2024-09-05 05:07] LABS: CREATININE 0.72 MG/DL (0.60-1.10); TOTAL CARBON DIOXIDE 29.2 MMOL/L (24-32); eCRCL 85 ML/MIN; eGFR > 90 ML/MIN
[2024-09-05 05:22] LABS: BANDS% (MANUAL) 10 % (0-10); LYMPHOCYTES % (MANUAL) 5 % (21-51); NEUTROPHILS % (MANUAL) 74 % (42-75)
[2024-09-05 05:23] LABS: EOSINOPHILS % (MANUAL) 1 % (0-6); LARGE PLATELETS FEW; METAMYLEOCYTES% (MANUAL) 2 % (0-0); MONOCYTES % (MANUAL) 8 % (2-12); PLATELET ESTIMATE DECREASED
[2024-09-05] MEDS: potassium Cl 20 mEq SR tablet PO PRN (05:24)
[2024-09-05 06:38] VITALS: BP 133/78; PULSE 82; RESP 20; TEMP 97.5; O2SAT 94
[2024-09-05 08:30] VITALS: RESP 22
--- NOTE | 2024-09-05 08:57 | RADIOLOGY REPORT ---
Date: 09/05/2024 08:13 AM Examination: DI ABDOMEN,SINGLE VIEW(KUB) History: abdominal distention Comparison: DI ABDOMEN,SINGLE VIEW(KUB) on DOS: 08/27/24, DI ABDOMEN,SINGLE VIEW(KUB) on DOS: 08/24/24 TECHNIQUE: Frontal views of the abdomen was obtained. FINDINGS: Mildly dilated loops of small bowel measuring up to 5.3 cm. The lung bases are unremarkable. No acute osseous abnormality identified. Postsurgical changes visualized in the right hip. IMPRESSION: Mildly dilated loops of small bowel measuring up to 5.3 cm. Differential considerations include small -bowel obstruction versus ileus.
[2024-09-05 11:30] VITALS: BP 133/91; PULSE 76; RESP 17; TEMP 97.1; O2SAT 98
--- NOTE | 2024-09-05 14:41 | PROGRESS NOTE ---
Daily Progress Note Providers to CC ~ Antibiotic Timeout Antibiotic Ordered?: Yes Subjective Chief complaint none Review of systems negative for all 10 systems reviewed Objective Vital Signs Date Time Temp Pulse Resp B/P (MAP) Pulse Ox O2 Delivery O2 Flow Rate FiO2 09/05/24 11:30 97.1 76 17 133/91 (105) 98 Room Air 09/04/24 22:00 1.0 09/01/24 13:36 98 Result Diagram: 09/05/2441009/05/24 041 Gen. No acute distress alert and oriented 4 Lungs clear to ascultation bilaterally, no wheezes rales or rhonchi appreciated Heart normal sinus rhythm no murmurs rubs or clicks noted Abdomen midline staple line and retention suture are present Lower extremities no clubbing cyanosis, nor edema appreciated bilaterally Coagulation Studies Laboratory Tests Test 08/31/24 10:00 Activated Partial Thromboplast Time 31 SECONDS (22-32) Problem\Assessment\Plan Patient is 78-year-old male. Patient is admitted for severe constipation and abnormal CT scan results. Small-bowel obstruction secondary to large colon mass- colon cancer # severe constipation- ER provider ordered the CT scan abdomen and pelvis which showed, Large amount of stool throughout the colon.Nonspecific nondilated fluid- filled small bowel loops. Findings may be seen with ileus or enteritis in the appropriate clinical setting. No small bowel obstruction.Focal area of hypo enhancement and stranding of the pancreatic tail, suspicious for malignancy. Correlate with clinical findings. MRI without and with contrast pancreatic protocol could be obtained to further characterize if clinically indicated. We will treat the patient for chronic constipation. GoLYTELY not available . he has not pass the stools even though he got the enama, mineral oil enema, milk of magnesium and Dulcolax suppository. I ordered KUB in oral CT abdomen and pelvis. 08/29/24-patient's constipation was not resolved despite of GoLYTELY consulted GI specialist Dr. Zaragoza and surgeon Dr. Baker. GI specialist Dr. Zaragoza r ecommended outpatient colonoscopy once patient is stable I discussed patient's diagnostic reports with him in visit today. Dr. Baker evaluated the patient and did Exploratory laparotomy Sigmoid colectomy , Biopsy of pelvic mass , Placement of wound [id number] for Large bowel obstruction. 08/30/24-patient will go for Reexploration, possible bowel resection, possible ostomy revision to be done by Dr. Lama 09/02/24 the patient went for a repeat laparotomy with repair of serosal tears and abdominal wound closure with Dr. Moe on 08/31/2024. NG tube remains in place for suctioning 09/03/2024 NG tube has been removed on a clear liquid diet 09/04/2024 diets advanced to a full liquid per Dr. Baker the patient has a # abnormal CT scan findings- Small to moderate fat containing supraumbilical ventral hernia with mild stranding within the hernia sac. Strangulation of the hernia not excluded. Patient's CT scan finding discussed with Dr. Baker who reviewed patient's imaging study results and not concerned about strangulation of ventral hernia. # hypertension-lisinopril started. We will continue to monitor patient's electrolyte when vitals. 09/02 off of pressors Added PRN IV hydralazine 09/04 uncontrolled add amlodipine 10 mg now and 10 mg daily # hypokalemia on potassium placement protocol # Code status discussed with the patient patient wishes to be a DNR code status # home medication reconciliation updated in electronic medical record # hypernatremia- on D5 W drip 09/04/2024 improving- D5W drip has been discontinued [facility] [place] continue PT- per Dr. Baker surgeon the patient may be ready in a couple of days to be discharged. Date of Service: Sep 05, 2024 Billing Provider: ROBERTO ENGLAND MD Common Visit Codes: [id number] INP/OBS CARE(HIGH) ROBERTO ENGLAND MD Sep 05, 2024 14:41
[2024-09-05 18:00] VITALS: BP 147/93; PULSE 79; RESP 16; TEMP 97; O2SAT 94
[2024-09-05 20:00] VITALS: RESP 20; O2SAT 97
[2024-09-05 22:00] VITALS: BP 164/94; PULSE 77; RESP 20; TEMP 97.9; O2SAT 97
[2024-09-06 04:50] LABS: MEAN PLATELET VOLUME 10.5 FL (7.4-10.4); RED CELL DISTRIBUTION WIDTH 14.4 % (11.5-14.5)
[2024-09-06 05:13] LABS: BANDS% (MANUAL) 16 % (0-10); CREATININE 0.80 MG/DL (0.60-1.10); EOSINOPHILS % (MANUAL) 1 % (0-6); LARGE PLATELETS FEW; LYMPHOCYTES % (MANUAL) 5 % (21-51); METAMYLEOCYTES% (MANUAL) 3 % (0-0); MONOCYTES % (MANUAL) 10 % (2-12); NEUTROPHILS % (MANUAL) 65 % (42-75); PLATELET ESTIMATE DECREASED; TOTAL CARBON DIOXIDE 28.9 MMOL/L (24-32); eCRCL 76 ML/MIN; eGFR > 90 ML/MIN
[2024-09-06 06:00] VITALS: BP 140/89; PULSE 75; RESP 20; TEMP 98; O2SAT 95
[2024-09-06 08:20] VITALS: RESP 22
[2024-09-06] MEDS ORDERED: POTASSIUM CHLORIDE 20 MEQ/15 ML oral solution PO PRN (10:11)
[2024-09-06] MEDS: calcium carbonate 500mg chew tablet PO PRN (10:15)
[2024-09-06 10:30] VITALS: BP 149/90; PULSE 76; RESP 14; TEMP 98.6; O2SAT 96
[2024-09-06] MEDS: POTASSIUM CHLORIDE 20 MEQ/15 ML oral solution PO PRN (13:27)
--- NOTE | 2024-09-06 16:57 | PROGRESS NOTE- Residence ---
Progress Note - Resident Providers to CC Resident Creating Document: KAY ULRICH RES ~ Antibiotic Timeout Antibiotic Ordered?: No Subjective Patient seen and examined at bedside, patient was working physical therapy and is passing flatus. Also has good colostomy output. Objective Vital Signs Date Time Temp Pulse Resp B/P (MAP) Pulse Ox O2 Delivery O2 Flow Rate FiO2 09/06/24 10:30 98.6 76 14 149/90 (109) 96 09/06/24 08:20 Room Air 09/04/24 22:00 1.0 Result Diagram: 09/06/2442309/06/24423 Awake , alert, and oriented x4, resting comfortably in the bed, in no acute distress HEENT: Atraumatic, normocephalic, EOMI, anicteric sclera ; pink conjunctiva Neck: Trachea midline. Supple, full range of motion, no JVD Cardiac: Regular rhythm, regular rate with no murmurs all over the precordium. Respiratory: Equal breath sounds bilaterally, no tachypnea, no wheezing ,rub or rales, Chest wall is symmetric and without deformity. Gastrointestinal: Left-sided colostomy site intact with no signs of infection, good output Musculoskeletal: No edema no cyanosis Neurological: Speech is clear, alert, and oriented x 4. No motor or sensory deficit, deep tendon reflexes normal, cerebellar intact. Cranial nerves II-XII intact. Skin: Warm and dry Coagulation Studies Laboratory Tests Test 08/31/24 10:00 Activated Partial Thromboplast Time 31 SECONDS (22-32) Advance Care Planning Advanced Care plannin - 30 Minutes Assessment Assessment 72-year-old male, is status post exploratory laparotomy and sigmoid colectomy is currently producing colostomy output and also passing flatus. Patient likely be discharged on Monday Plan Plan Large Bowel Obstruction due to Colon Mass (Likely Colon Cancer) Status post exploratory laparotomy and sigmoid colectomy SBO secondary to last colonic mass CT A/P: Fecal impaction with signs of obstruction S/P sigmoid colectomy + exploratory laparotomy (08/29) S/P laparotomy with serosal tear repair (08/31) Wound VAC in place; incision healing Await pathology results Outpatient colonoscopy per GI (Dr. Zaragoza) once stable Plan for oncology referral pending pathology Constipation / Post-Op Ileus CT A/P: Large stool burden, no dick SBO NG removed on 09/03; full liquid diet since 09/04 Patient has flatus and had colostomy output Continue monitoring Pancreatic Tail Hypoenhancement CT A/P: Suggests possible malignancy or focal inflammation No clinical signs of pancreatitis Consider MRI pancreas with contrast outpatient if clinically indicated Lipase normal Ventral Hernia with Mild Stranding CT shows small to moderate supraumbilical fat-containing ventral hernia Reviewed with Dr. Baker no concern for strangulation Monitor for symptoms, conservative management Mild Transaminitis (Mild increased AST/ALT) Possibly multifactorial: post-op stress, medication-related, pancreatic tail involvement Monitor trend Continue checking the hepatic panel daily No hepatomegaly or jaundice on exam If persists, outpatient liver ultrasound may be considered Hypertension Lisinopril restarted Amlodipine 10 mg daily added 09/04 PRN hydralazine Continue monitoring BP and electrolytes Hypokalemia On replacement protocol Daily BMP Hypernatremia Previously treated with D5W ? resolved D5W discontinued 09/04 Continue fluid and electrolyte monitoring Post-Operative Recovery POD #6 ambulating, tolerating full liquids Wound VAC intact PT/OT ongoing Code Status: DNR Disposition Planning Stable for discharge back to home in on Monday s per Dr. Baker Case management coordinating transfer Kay Ulrich MD Internal Medicine Resident, PGY-2 Date of Service: Sep 06, 2024 Billing Provider: DAVID CACERES MD,KAY, RES Sep 06, 2024 16:57
[2024-09-06] MEDS: MVI, adult No.4 with vit. K 10 ML in dextrose 5% water 500ml 500 ML IV SCH (17:41)
[2024-09-06] MEDS: FAT EMUL/SOY/MCT/OLIV/FISH OIL 100 ML IV SCH (17:42)
[2024-09-06 18:00] VITALS: BP 135/82; PULSE 84; RESP 12; TEMP 97.4; O2SAT 97
[2024-09-06 20:00] VITALS: RESP 12; O2SAT 97
[2024-09-06 22:00] VITALS: BP 124/77; PULSE 80; RESP 16; TEMP 98.9; O2SAT 93
[2024-09-07 05:57] LABS: MEAN PLATELET VOLUME 11.0 FL (7.4-10.4); RED CELL DISTRIBUTION WIDTH 14.2 % (11.5-14.5)
[2024-09-07 06:08] LABS: CREATININE 0.61 MG/DL (0.60-1.10); PHOSPHORUS 2.5 MG/DL (2.3-4.5); TOTAL CARBON DIOXIDE 26.5 MMOL/L (24-32); eCRCL 100 ML/MIN; eGFR > 90 ML/MIN
[2024-09-07 07:00] LABS: BANDS% (MANUAL) 2.0 % (0-10); EOSINOPHILS % (MANUAL) 3.0 % (0-6); LYMPHOCYTES % (MANUAL) 6.0 % (21-51); METAMYLEOCYTES% (MANUAL) 10.0 % (0-0); MONOCYTES % (MANUAL) 10.0 % (2-12); NEUTROPHILS % (MANUAL) 69.0 % (42-75)
[2024-09-07 07:01] LABS: LARGE PLATELETS FEW; PLATELET ESTIMATE DECREASED
[2024-09-07 07:12] VITALS: BP 123/84; PULSE 75; RESP 16; TEMP 99; O2SAT 95
[2024-09-07 08:49] VITALS: RESP 18
[2024-09-07 10:33] VITALS: BP 134/84; PULSE 77; RESP 16; TEMP 97.9; O2SAT 95
[2024-09-07] MEDS: diatr meglu/diatrizoate 30ml oral sol.-(3 dose) bottle PO SCH (12:49)
--- NOTE | 2024-09-07 13:01 | PROGRESS NOTE ---
Progress Note ID Providers to CC ~ Progress Note Progress Note: min stomal output-needs ct JARROD Crenshaw MD Sep 07, 2024 13:01
[2024-09-07] MEDS ORDERED: POTASSIUM CHLORIDE 20 MEQ/15 ML oral solution PO PRN (16:05)
[2024-09-07] MEDS: POTASSIUM CHLORIDE 20 MEQ/15 ML oral solution PO PRN (16:10)
[2024-09-07 18:00] VITALS: BP 152/90; PULSE 76; RESP 18; TEMP 98.4; O2SAT 96
--- NOTE | 2024-09-07 18:20 | HISTORY AND PHYSICAL-Residence ---
History & Physical Providers to CC ~ History of Present Illness Allergies: Uncoded Allergies: TAPE (Adverse Reaction, Severe, BLISTERS, 09/03/24) Home Medications Home Medications Active Reported Prilosec (Omeprazole) 40 Mg Capsule 1 Cap PO HS 30 Days Flomax* (Tamsulosin HCl) 0.4 Mg Cap.sr.24h 1 Cap PO HS 30 Days Exam Vitals: Vital Signs Date Time Temp Pulse Resp B/P (MAP) Pulse Ox O2 Delivery O2 Flow Rate FiO2 09/07/24 10:33 97.9 77 16 134/84 (101) 95 Room Air 09/04/24 22:00 1.0 Diagnostic Data Last Recorded Lab Results: 09/07/24 04209/07/24 042 Diagnostic Data: Laboratory Tests Test 08/31/24 10:00 Activated Partial Thromboplast Time 31 SECONDS (22-32) Additional Plan Large Bowel Obstruction due to Colon Mass (Likely Colon Cancer) Status post exploratory laparotomy and sigmoid colectomy SBO secondary to last colonic mass CT A/P: Fecal impaction with signs of obstruction S/P sigmoid colectomy + exploratory laparotomy (08/29) S/P laparotomy with serosal tear repair (08/31) Wound VAC in place; incision healing Await pathology results Outpatient colonoscopy per GI (Dr. Zaragoza) once stable Plan for oncology referral pending pathology Constipation / Post-Op Ileus CT A/P: Large stool burden, no dick SBO NG removed on 09/03; full liquid diet since 09/04 Patient has flatus and had colostomy output Abdominal x-ray 09/05/2024 : Mildly dilated loops of small bowel measuring up to 5.[address], results pending Pancreatic Tail Hypoenhancement CT A/P: Suggests possible malignancy or focal inflammation No clinical signs of pancreatitis Consider MRI pancreas with contrast outpatient if clinically indicated Lipase normal Ventral Hernia with Mild Stranding CT shows small to moderate supraumbilical fat-containing ventral hernia Reviewed with Dr. Baker no concern for strangulation Monitor for symptoms, conservative management Mild Transaminitis (Mild increased AST/ALT) Possibly multifactorial: post-op stress, medication-related, pancreatic tail involvement Monitor trend Continue checking the hepatic panel daily No hepatomegaly or jaundice on exam If persists, outpatient liver ultrasound may be considered Hypertension Lisinopril restarted Amlodipine 10 mg daily added 09/04 PRN hydralazine Continue monitoring BP and electrolytes Hypokalemia, resolved On replacement protocol Daily BMP Hypernatremia Previously treated with D5W ? resolved D5W discontinued 09/04 Continue fluid and electrolyte monitoring Post-Operative Recovery POD #6 ambulating, tolerating full liquids Wound VAC intact PT/OT ongoing Code Status: DNR Disposition: Follow-up with abdominal CT Beverly Hallman MD Internal Medicine Resident, PGY-1 BEVERLY HALLMAN, RES Sep 07, 2024 18:20
--- NOTE | 2024-09-07 18:24 | PROGRESS NOTE- Residence ---
Progress Note - Resident Providers to CC Resident Creating Document: BEVERLY HALLMAN RES CC: DAVID CACERES MD ~ Antibiotic Timeout Antibiotic Ordered?: No Subjective Patient seen and examined at bedside, patient was working physical therapy and is passing flatus. Patient's abdomen appears mildly distended, patient underwent CT abdomen today results pending. No other pertinent symptoms Objective Vital Signs Date Time Temp Pulse Resp B/P (MAP) Pulse Ox O2 Delivery O2 Flow Rate FiO2 09/07/24 10:33 97.9 77 16 134/84 (101) 95 Room Air 09/04/24 22:00 1.0 Awake , alert, and oriented x4, resting comfortably in the bed, in no acute distress HEENT: Atraumatic, normocephalic, EOMI, anicteric sclera ; pink conjunctiva Neck: Trachea midline. Supple, full range of motion, no JVD Cardiac: Regular rhythm, regular rate with no murmurs all over the precordium. Respiratory: Equal breath sounds bilaterally, no tachypnea, no wheezing ,rub or rales, Chest wall is symmetric and without deformity. Gastrointestinal: Abdomen appears mildly distended Left-sided colostomy site intact with no signs of infection, good output Musculoskeletal: No edema no cyanosis Neurological: Speech is clear, alert, and oriented x 4. No motor or sensory deficit, deep tendon reflexes normal, cerebellar intact. Cranial nerves II-XII intact. Skin: Warm and dry Result Diagram: 09/07/249 09/07/24428 Coagulation Studies Laboratory Tests Test 08/31/24 10:00 Activated Partial Thromboplast Time 31 SECONDS (22-32) Assessment Assessment 72-year-old male, is status post exploratory laparotomy and sigmoid colectomy is currently producing colostomy output and also passing flatus. Patient likely be discharged on Monday Plan Plan Large Bowel Obstruction due to Colon Mass (Likely Colon Cancer) Status post exploratory laparotomy and sigmoid colectomy SBO secondary to last colonic mass CT A/P: Fecal impaction with signs of obstruction S/P sigmoid colectomy + exploratory laparotomy (08/29) S/P laparotomy with serosal tear repair (08/31) Wound VAC in place; incision healing Await pathology results Outpatient colonoscopy per GI (Dr. Zaragoza) once stable Plan for oncology referral pending pathology Constipation / Post-Op Ileus CT A/P: Large stool burden, no dick SBO NG removed on 09/03; full liquid diet since 09/04 Patient has flatus and had colostomy output Abdominal x-ray 09/05/2024 : Mildly dilated loops of small bowel measuring up to 5.[address], results pending Pancreatic Tail Hypoenhancement CT A/P: Suggests possible malignancy or focal inflammation No clinical signs of pancreatitis Consider MRI pancreas with contrast outpatient if clinically indicated Lipase normal Ventral Hernia with Mild Stranding CT shows small to moderate supraumbilical fat-containing ventral hernia Reviewed with Dr. Baker no concern for strangulation Monitor for symptoms, conservative management Mild Transaminitis (Mild increased AST/ALT) Possibly multifactorial: post-op stress, medication-related, pancreatic tail involvement Monitor trend Continue checking the hepatic panel daily No hepatomegaly or jaundice on exam If persists, outpatient liver ultrasound may be considered Hypertension Lisinopril restarted Amlodipine 10 mg daily added 09/04 PRN hydralazine Continue monitoring BP and electrolytes Hypokalemia, resolved On replacement protocol Daily BMP Hypernatremia Previously treated with D5W ? resolved D5W discontinued 09/04 Continue fluid and electrolyte monitoring Post-Operative Recovery POD #6 ambulating, tolerating full liquids Wound VAC intact PT/OT ongoing Code Status: DNR Disposition: Follow-up with abdominal CT eBverly Hallman MD Internal Medicine Resident, PGY-1 Date of Service: Sep 07, 2024 Billing Provider: DAVID CACERES MD,BEVERLY, RES Sep 07, 2024 18:24
--- NOTE | 2024-09-07 19:49 | RADIOLOGY REPORT ---
COMPUTERIZED TOMOGRAPHY ABDOMEN AND PELVIS WITHOUT CONTRAST REASON FOR EXAM: R/O SARAH. Abdominal pain. COMPARISON: CT CT ABDOMEN PELVIS W/ ORAL CONTRAST on DOS: 08/28/24, CT CT ABDOMEN PELVIS W/ IV CONTRAST on DOS: 08/26/24 TECHNIQUE: Spiral scans were acquired from the diaphragm to the symphysis pubis without intravenous c ontrast administration. 2-D coronal and sagittal reformatted images were provided. Radiation optimiza tion: All CT scans at this facility use at least one of these dose optimization techniques: Automated exposure control mA and/or kV adjustment per patient size (includes targeted exams where dose is mat ched to clinical indication) or iterative reconstruction. Oral contrast was administered. RADIATION DOSE: CTDI: 32 mGy DLP: 1821 mGy-cm FINDINGS: There is moderate dependent consolidation in bilateral lower lobes of the lungs. There is small left and trace right pleural effusion. There is small pericardial effusion. The spleen is not enlarged. The liver is normal in size and contour. There are a few scattered hepat ic cysts. Evaluation of the abdominal organs is suboptimal in the absence of intravenous contrast. N o calcified gallstone is identified. There is unchanged hypodensity in the tail of the pancreas that is better evaluated on recent MRI. The adrenal glands are normal. The kidneys are similar in size. Th ere are numerous simple parapelvic cysts in both kidneys which require no dedicated follow-up. There is no hydronephrosis of either kidney. No renal, ureteral, or bladder calculus is identified. The ur inary bladder is grossly unremarkable. The prostate is mildly enlarged. The patient is status post le ft hemicolectomy with a left upper quadrant colostomy. There is some stool remaining in the rectal st ump. There is severe diverticulosis of the rectal stump without evidence of diverticulitis. There is trace fluid in the deep pelvis, likely postsurgical. There is no abdominal aortic aneurysm. There is moderate atherosclerosis. There is moderate fluid and enteric contrast distending the small bowel. T here is no abrupt transition point, however, the distal ileum is largely decompressed in the right lo wer quadrant. There is a small amount of free fluid throughout the abdomen. There are skin jessa al mariaa midline anterior abdominal incision. There is surgical fixation of the right femoral neck. No acu te osseous abnormality is identified. There are degenerative changes in the lumbar spine. IMPRESSION: Interval left hemicolectomy. Trace fluid in the abdomen and deep pelvis may be related to recent surg carlos. Moderate fluid and enteric contrast distending the small bowel without abrupt transition point, howev er, the distal ileum is largely decompressed in the right lower quadrant. Low-grade or early small-sarah wel obstruction is a consideration. Ileus is also a consideration. Similar appearance of mass in the pancreatic tail. This is better seen and evaluated on the recent MR I. Moderate dependent consolidation in bilateral lower lobes of the lungs. Small left and trace right p leural effusions.
[2024-09-07 20:00] VITALS: RESP 18; O2SAT 96
[2024-09-07 22:00] VITALS: BP 137/85; PULSE 71; RESP 22; TEMP 97.8; O2SAT 96
[2024-09-08 05:53] LABS: MEAN PLATELET VOLUME 10.8 FL (7.4-10.4); RED CELL DISTRIBUTION WIDTH 14.6 % (11.5-14.5)
[2024-09-08 06:08] LABS: CREATININE 0.65 MG/DL (0.60-1.10); PHOSPHORUS 3.0 MG/DL (2.3-4.5); TOTAL CARBON DIOXIDE 24.7 MMOL/L (24-32); eCRCL 94 ML/MIN; eGFR > 90 ML/MIN
[2024-09-08 06:23] LABS: EOSINOPHILS % (MANUAL) 2.0 % (0-6); LARGE PLATELETS FEW; LYMPHOCYTES % (MANUAL) 7.0 % (21-51); METAMYLEOCYTES% (MANUAL) 2.0 % (0-0); MONOCYTES % (MANUAL) 8.0 % (2-12); MYELOCYTES % (MANUAL) 1.0 % (0-0); NEUTROPHILS % (MANUAL) 80.0 % (42-75); PLATELET ESTIMATE NORMAL
[2024-09-08 06:36] VITALS: BP 126/74; PULSE 77; RESP 18; TEMP 98; O2SAT 95
[2024-09-08 08:42] VITALS: RESP 18
[2024-09-08 09:58] VITALS: BP 180/99; PULSE 88; RESP 18; TEMP 98; O2SAT 98
[2024-09-08] MEDS ORDERED: metoclopramide 5 mg/ml inj IV PRN (12:10)
--- NOTE | 2024-09-08 12:46 | PROGRESS NOTE ---
Progress Note ID Providers to CC ~ Progress Note Progress Note: denies pain/vss/fto-[id number] viable/ct noted a/p 1, s/p calixto-persistent ileus/add JARROD Dsouza MD Sep 08, 2024 12:46
[2024-09-08] MEDS: metoclopramide 5 mg/ml inj IV SCH (12:48)
--- NOTE | 2024-09-08 17:22 | PROGRESS NOTE- Residence ---
Progress Note - Resident Providers to CC Resident Creating Document: KAY ULRICH RES ~ Antibiotic Timeout Antibiotic Ordered?: No Subjective Patient seen and examined at bedside, patient has abdominal distention and very sluggish bowel movements. 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 He was advised for an NG tube placement, but however he denied. On educating him regarding the need for the NG tube, he was in agreement but wanted to try an NG tube only if he has a another episode of severe vomiting. Objective Vital Signs Date Time Temp Pulse Resp B/P (MAP) Pulse Ox O2 Delivery O2 Flow Rate FiO2 09/08/24 09:58 98.0 88 18 180/99 (126) 98 Room Air 1.0 Result Diagram: 09/08/24 0506 09/08/24 0506 Awake , alert, and oriented x4, resting comfortably in the bed, in no acute distress HEENT: Atraumatic, normocephalic, EOMI, anicteric sclera ; pink conjunctiva Neck: Trachea midline. Supple, full range of motion, no JVD Cardiac: Regular rhythm, regular rate with no murmurs all over the precordium. Respiratory: Equal breath sounds bilaterally, no tachypnea, no wheezing ,rub or rales, Chest wall is symmetric and without deformity. Gastrointestinal: Left-sided colostomy site intact with no signs of infection, good output, distended abdomen. Musculoskeletal: No edema no cyanosis Neurological: Speech is clear, alert, and oriented x 4. No motor or sensory deficit, deep tendon reflexes normal, cerebellar intact. Cranial nerves II-XII intact. Skin: Warm and dry Coagulation Studies Laboratory Tests Test 08/31/24 10:00 Activated Partial Thromboplast Time 31 SECONDS (22-32) Advance Care Planning Advanced Care plannin - 30 Minutes Assessment Assessment 72-year-old male, is status post exploratory laparotomy and sigmoid colectomy is currently producing colostomy output and also passing flatus. Patient likely be discharged on Monday Plan Plan Large Bowel Obstruction due to Colon Mass (Likely Colon Cancer) Status post exploratory laparotomy and sigmoid colectomy SBO secondary to last colonic mass CT A/P: Fecal impaction with signs of obstruction S/P sigmoid colectomy + exploratory laparotomy (08/29) S/P laparotomy with serosal tear repair (08/31) Wound VAC in place; incision healing Await pathology results Outpatient colonoscopy per GI (Dr. Zaragoza) once stable Plan for oncology referral pending pathology Constipation / Post-Op Ileus CT A/P: Large stool burden, no dick SBO NG removed on 09/03; full liquid diet since 09/04 Patient has flatus and had colostomy output Abdominal x-ray 09/05/2024: Mildly dilated loops of small bowel measuring up to 5.[address] abdomen showed: Interval left hemicolectomy. Trace fluid in the abdomen and deep pelvis may be related to recent surgery.Moderate fluid and enteric contrast distending the small bowel without abrupt transition point, however, the distal ileum is largely decompressed in the right lower quadrant. Low-grade or early small-bowel obstruction is a consideration. Ileus is also a consideration. Patient was able to pass flatus and also has good colostomy output. Initiated Reglan 10 mg IV q.6 H Pancreatic Tail Hypoenhancement CT A/P: Suggests possible malignancy or focal inflammation No clinical signs of pancreatitis Consider MRI pancreas with contrast outpatient if clinically indicated Lipase normal Ventral Hernia with Mild Stranding CT shows small to moderate supraumbilical fat-containing ventral hernia Reviewed with Dr. Baker no concern for strangulation Monitor for symptoms, conservative management Mild Transaminitis (Mild increased AST/ALT) Possibly multifactorial: post-op stress, medication-related, pancreatic tail involvement Monitor trend Continue checking the hepatic panel daily No hepatomegaly or jaundice on exam Trending down gradually Hypertension Lisinopril restarted Amlodipine 10 mg daily added 09/04 PRN hydralazine Continue monitoring BP and electrolytes Hypokalemia, resolved On replacement protocol Daily BMP Hypernatremia Previously treated with D5W, resolved D5W discontinued 09/04 Continue fluid and electrolyte monitoring Post-Operative Recovery POD #6 ambulating, tolerating full liquids Wound VAC intact PT/OT ongoing Code Status: DNR Kay Ulrich MD Internal Medicine Resident, PGY-2 Date of Service: Sep 08, 2024 Billing Provider: DAVID CACERES MD,KAY, RES Sep 08, 2024 17:22
[2024-09-08 18:00] VITALS: BP 125/75; PULSE 70; RESP 18; TEMP 97.4; O2SAT 95
[2024-09-08 20:00] VITALS: RESP 18; O2SAT 95
[2024-09-08 22:00] VITALS: BP 124/76; PULSE 74; RESP 18; TEMP 98.6; O2SAT 95
[2024-09-09 05:48] LABS: MEAN PLATELET VOLUME 11.2 FL (7.4-10.4); RED CELL DISTRIBUTION WIDTH 14.5 % (11.5-14.5)
[2024-09-09 06:01] LABS: CREATININE 0.69 MG/DL (0.60-1.10); PHOSPHORUS 3.4 MG/DL (2.3-4.5); TOTAL CARBON DIOXIDE 28.5 MMOL/L (24-32); eCRCL 88 ML/MIN; eGFR > 90 ML/MIN
[2024-09-09 06:30] VITALS: BP 129/81; PULSE 73; RESP 16; TEMP 97.9; O2SAT 95
[2024-09-09 07:36] LABS: BANDS% (MANUAL) 3.0 % (0-10); EOSINOPHILS % (MANUAL) 1.0 % (0-6); LARGE PLATELETS FEW; LYMPHOCYTES % (MANUAL) 7.0 % (21-51); METAMYLEOCYTES% (MANUAL) 6.0 % (0-0); MONOCYTES % (MANUAL) 11.0 % (2-12); NEUTROPHILS % (MANUAL) 72.0 % (42-75); PLATELET ESTIMATE NORMAL
[2024-09-09 11:00] VITALS: BP 139/79; PULSE 77; RESP 17; TEMP 98.1; O2SAT 98
--- NOTE | 2024-09-09 16:07 | PROGRESS NOTE- Residence ---
Progress Note - Resident Providers to CC Resident Creating Document: KAY ULRICH RES ~ Antibiotic Timeout Antibiotic Ordered?: No Subjective Patient seen and examined at bedside, p abdomen soft in comparison to yesterday. Bowel sounds still sluggish. Patient had no further episodes of vomiting since yesterday morning. Currently on PPN Objective Vital Signs Date Time Temp Pulse Resp B/P (MAP) Pulse Ox O2 Delivery O2 Flow Rate FiO2 09/09/24 11:00 98.1 77 17 139/79 (99) 98 Room Air 09/08/24 09:58 1.0 Result Diagram: 09/09/2442709/09/24427 Awake , alert, and oriented x4, resting comfortably in the bed, in no acute distress HEENT: Atraumatic, normocephalic, EOMI, anicteric sclera ; pink conjunctiva Neck: Trachea midline. Supple, full range of motion, no JVD Cardiac: Regular rhythm, regular rate with no murmurs all over the precordium. Respiratory: Equal breath sounds bilaterally, no tachypnea, no wheezing ,rub or rales, Chest wall is symmetric and without deformity. Gastrointestinal: Left-sided colostomy site intact with no signs of infection, good output, softer abdomen today, but sluggish bowel sounds. Musculoskeletal: No edema no cyanosis Neurological: Speech is clear, alert, and oriented x 4. No motor or sensory deficit, deep tendon reflexes normal, cerebellar intact. Cranial nerves II-XII intact. Skin: Warm and dry Coagulation Studies Laboratory Tests Test 08/31/24 10:00 Activated Partial Thromboplast Time 31 SECONDS (22-32) Advance Care Planning Advanced Care plannin - 30 Minutes Assessment Assessment 72-year-old male, is status post exploratory laparotomy and sigmoid colectomy is currently producing colostomy output and also passing flatus. Plan Plan Large Bowel Obstruction due to Colon Mass (Likely Colon Cancer) Status post exploratory laparotomy and sigmoid colectomy SBO secondary to last colonic mass CT A/P: Fecal impaction with signs of obstruction S/P sigmoid colectomy + exploratory laparotomy (08/29) S/P laparotomy with serosal tear repair (08/31) Wound VAC in place; incision healing Await pathology results Outpatient colonoscopy per GI (Dr. Zaragoza) once stable Plan for oncology referral; pending pathology Constipation / Post-Op Ileus CT A/P: Large stool burden, no dick SBO NG removed on 09/03; full liquid diet since 09/04 Patient has flatus and had colostomy output Abdominal x-ray 09/05/2024: Mildly dilated loops of small bowel measuring up to 5.[address] abdomen showed: Interval left hemicolectomy. Trace fluid in the abdomen and deep pelvis may be related to recent surgery.Moderate fluid and enteric contrast distending the small bowel without abrupt transition point, however, the distal ileum is largely decompressed in the right lower quadrant. Low-grade or early small-bowel obstruction is a consideration. Ileus is also a consideration. Patient was able to pass flatus and also has good colostomy output. Continue Reglan 10 mg IV q.6 H Pancreatic Tail Hypoenhancement CT A/P: Suggests possible malignancy or focal inflammation No clinical signs of pancreatitis Consider MRI pancreas with contrast outpatient if clinically indicated Lipase normal Ventral Hernia with Mild Stranding CT shows small to moderate supraumbilical fat-containing ventral hernia Reviewed with Dr. Baker no concern for strangulation Monitor for symptoms, conservative management Mild Transaminitis (Mild increased AST/ALT) Possibly multifactorial: post-op stress, medication-related, pancreatic tail involvement Monitor trend Continue checking the hepatic panel daily No hepatomegaly or jaundice on exam Trending down gradually Hypertension Lisinopril restarted Amlodipine 10 mg daily added 09/04 PRN hydralazine Continue monitoring BP and electrolytes Hypokalemia, resolved On replacement protocol Daily BMP Hypernatremia Resolved Post-Operative Recovery Ambulating, tolerating full liquids Wound VAC intact PT/OT ongoing Code Status: DNR Kay Ulrich MD Internal Medicine Resident, PGY-2 Date of Service: Sep 09, 2024 Billing Provider: DAVID CACERES MD, GAURAV, RES Sep 09, 2024 16:07
[2024-09-09 18:00] VITALS: BP 118/76; PULSE 72; RESP 16; TEMP 97.4; O2SAT 98
[2024-09-09 22:00] VITALS: BP 131/82; PULSE 74; RESP 14; TEMP 97.9; O2SAT 96
[2024-09-10 05:21] LABS: PHOSPHORUS 3.1 MG/DL (2.3-4.5)
[2024-09-10 06:00] VITALS: BP 140/85; PULSE 70; RESP 16; TEMP 97.8; O2SAT 95
[2024-09-10 09:23] LABS: CREATININE 0.73 MG/DL (0.60-1.10); TOTAL CARBON DIOXIDE 21.9 MMOL/L (24-32); eCRCL 83 ML/MIN; eGFR > 90 ML/MIN
[2024-09-10 10:00] VITALS: BP 110/72; PULSE 80; RESP 18; TEMP 97.1; O2SAT 95
--- NOTE | 2024-09-10 15:12 | PROGRESS NOTE- Residence ---
Progress Note - Resident Providers to CC Resident Creating Document: KAY ULRICH, RES ~ Antibiotic Timeout Antibiotic Ordered?: No Subjective Patient seen and examined at bedside, bowel sounds still sluggish, but does not have any further episodes of vomiting. Currently on PPN, patient on full liquid diet per Dr. Baker Objective Vital Signs Date Time Temp Pulse Resp B/P (MAP) Pulse Ox O2 Delivery O2 Flow Rate FiO2 09/10/24 10:00 97.1 80 18 110/72 (85) 95 Room Air 09/08/24 09:58 1.0 Result Diagram: 09/09/248 09/10/24 042 Awake , alert, and oriented x4, resting comfortably in the bed, in no acute distress HEENT: Atraumatic, normocephalic, EOMI, anicteric sclera ; pink conjunctiva Neck: Trachea midline. Supple, full range of motion, no JVD Cardiac: Regular rhythm, regular rate with no murmurs all over the precordium. Respiratory: Equal breath sounds bilaterally, no tachypnea, no wheezing ,rub or rales, Chest wall is symmetric and without deformity. Gastrointestinal: Left-sided colostomy site intact with no signs of infection, good output, softer abdomen today, still sluggish bowel sounds. Musculoskeletal: No edema no cyanosis Neurological: Speech is clear, alert, and oriented x 4. No motor or sensory deficit, deep tendon reflexes normal, cerebellar intact. Cranial nerves II-XII intact. Skin: Warm and dry Coagulation Studies Laboratory Tests Test 08/31/24 10:00 Activated Partial Thromboplast Time 31 SECONDS (22-32) Advance Care Planning Advanced Care plannin - 30 Minutes Assessment Assessment 72-year-old male, is status post exploratory laparotomy and sigmoid colectomy is currently producing colostomy output and also passing flatus. Plan Plan Large Bowel Obstruction due to Colon Mass (Likely Colon Cancer) Status post exploratory laparotomy and sigmoid colectomy SBO secondary to last colonic mass CT A/P: Fecal impaction with signs of obstruction S/P sigmoid colectomy + exploratory laparotomy (08/29) S/P laparotomy with serosal tear repair (08/31) Wound VAC in place; incision healing Await pathology results Outpatient colonoscopy per GI (Dr. Zaragoza) once stable Plan for oncology referral; pending pathology DCed Zosyn today Constipation / Post-Op Ileus CT A/P: Large stool burden, no dick SBO NG removed on 09/03; full liquid diet since 09/04 Patient has flatus and had colostomy output Abdominal x-ray 09/05/2024: Mildly dilated loops of small bowel measuring up to 5.[address] abdomen showed: Interval left hemicolectomy. Trace fluid in the abdomen and deep pelvis may be related to recent surgery.Moderate fluid and enteric contrast distending the small bowel without abrupt transition point, however, the distal ileum is largely decompressed in the right lower quadrant. Low-grade or early small-bowel obstruction is a consideration. Ileus is also a consideration. Patient was able to pass flatus and also has good colostomy output. Continue Reglan 10 mg IV q.6 H Pancreatic Tail Hypoenhancement CT A/P: Suggests possible malignancy or focal inflammation No clinical signs of pancreatitis Consider MRI pancreas with contrast outpatient if clinically indicated Lipase normal Ventral Hernia with Mild Stranding CT shows small to moderate supraumbilical fat-containing ventral hernia Reviewed with Dr. Baker no concern for strangulation Monitor for symptoms, conservative management Nonspecific Transaminitis (Mild increased AST/ALT) Possibly multifactorial: post-op stress, medication-related, pancreatic tail involvement Monitor trend Continue checking the hepatic panel daily No hepatomegaly or jaundice on exam Hypertension Lisinopril restarted Amlodipine 10 mg daily added 09/04 PRN hydralazine Continue monitoring BP and electrolytes Hypokalemia, resolved Hypernatremia- Resolved Post-Operative Recovery Ambulating, tolerating full liquids Wound VAC intact PT/OT ongoing Code Status: DNR Awaiting Dr. Tsai's recommendations Kay Ulrich MD Internal Medicine Resident, PGY-2 Date of Service: Sep 10, 2024 Billing Provider: DAVID CACERES MD, GAURAV, RES Sep 10, 2024 15:12
[2024-09-10 18:00] VITALS: BP 127/74; PULSE 77; RESP 18; TEMP 97.7; O2SAT 96
[2024-09-10] MEDS: lactose-reduced food (Ensure Enlive) - 237ml bottle PO SCH (18:04)
[2024-09-10 22:00] VITALS: BP 114/71; PULSE 72; RESP 13; TEMP 98.4; O2SAT 95
[2024-09-11 05:41] LABS: MEAN PLATELET VOLUME 11.1 FL (7.4-10.4); RED CELL DISTRIBUTION WIDTH 14.8 % (11.5-14.5)
[2024-09-11 06:36] LABS: CREATININE 0.90 MG/DL (0.60-1.10); PHOSPHORUS 3.3 MG/DL (2.3-4.5); TOTAL CARBON DIOXIDE 23.7 MMOL/L (24-32); eCRCL 68 ML/MIN; eGFR 82 ML/MIN
[2024-09-11 07:00] VITALS: BP 114/70; PULSE 76; RESP 16; TEMP 97.6; O2SAT 94
[2024-09-11 08:00] VITALS: RESP 22
[2024-09-11] MEDS: magnesium hydroxide 30ml (MOM) UD suspension PO ONE (09:56)
[2024-09-11 10:00] VITALS: BP 107/69; PULSE 84; RESP 16; TEMP 97.3; O2SAT 93
--- NOTE | 2024-09-11 11:23 | PROGRESS NOTE- Residence ---
Progress Note - Resident Providers to CC Resident Creating Document: KAY ULRICH, MARITO ~ Antibiotic Timeout Antibiotic Ordered?: No Subjective Patient seen and examined at bedside, bowel sounds improving. Dr. Baker gave the orders for full liquid diet yesterday, patient tolerated. Had nausea at 2:00 a.m. this morning but does not have any episodes of vomiting He also got 1 dose of milk of magnesium today and he had improved bowel sounds compared to yesterday. As per Dr. Baker, patient has been transition to regular diet; to wean off PPN this afternoon Objective Vital Signs Date Time Temp Pulse Resp B/P (MAP) Pulse Ox O2 Delivery O2 Flow Rate FiO2 09/11/24 09:34 76 09/10/24 22:00 98.4 13 114/71 (85) 95 Room Air 09/08/24 09:58 1.0 Result Diagram: 09/11/2441409/11/24414 Awake , alert, and oriented x4, resting comfortably in the bed, in no acute distress HEENT: Atraumatic, normocephalic, EOMI, anicteric sclera ; pink conjunctiva Neck: Trachea midline. Supple, full range of motion, no JVD Cardiac: Regular rhythm, regular rate with no murmurs all over the precordium. Respiratory: Equal breath sounds bilaterally, no tachypnea, no wheezing ,rub or rales, Chest wall is symmetric and without deformity. Gastrointestinal: Left-sided colostomy site intact with no signs of infection, good output, softer abdomen today, improving bowel sounds Musculoskeletal: No edema no cyanosis Neurological: Speech is clear, alert, and oriented x 4. No motor or sensory deficit, deep tendon reflexes normal, cerebellar intact. Cranial nerves II-XII intact. Skin: Warm and dry Coagulation Studies Laboratory Tests Test 08/31/24 10:00 Activated Partial Thromboplast Time 31 SECONDS (22-32) Assessment Assessment 72-year-old male, is status post exploratory laparotomy and sigmoid colectomy is currently producing colostomy output and also passing flatus. Plan Plan Large Bowel Obstruction due to Colon Mass (Likely Colon Cancer) Status post exploratory laparotomy and sigmoid colectomy SBO secondary to last colonic mass CT A/P: Fecal impaction with signs of obstruction S/P sigmoid colectomy + exploratory laparotomy (08/29) S/P laparotomy with serosal tear repair (08/31) Wound VAC in place; incision healing Await pathology results Outpatient colonoscopy per GI (Dr. Zaragoza) once stable Plan for oncology referral; pending pathology DCed Zosyn today 09/10/2024: Dr. Baker gave the orders for full liquid diet yesterday, patient tolerated Had nausea at 2:00 a.m. this morning but does not have any episodes of vomiting He also got 1 dose of milk of magnesium today and he had improved bowel sounds compared to yesterday As per Dr. Baker, patient has been transition to regular diet; to wean off PPN this afternoon Constipation / Post-Op Ileus CT A/P: Large stool burden, no dick SBO NG removed on 09/03; full liquid diet since 09/04 Patient has flatus and had colostomy output Abdominal x-ray 09/05/2024: Mildly dilated loops of small bowel measuring up to 5.[address] abdomen showed: Interval left hemicolectomy. Trace fluid in the abdomen and deep pelvis may be related to recent surgery.Moderate fluid and enteric contrast distending the small bowel without abrupt transition point, however, the distal ileum is largely decompressed in the right lower quadrant. Low-grade or early small-bowel obstruction is a consideration. Ileus is also a consideration. Patient was able to pass flatus and also has good colostomy output. Continue Reglan 10 mg IV q.6 H Pancreatic Tail Hypoenhancement CT A/P: Suggests possible malignancy or focal inflammation No clinical signs of pancreatitis Consider MRI pancreas with contrast outpatient if clinically indicated Lipase normal Ventral Hernia with Mild Stranding CT shows small to moderate supraumbilical fat-containing ventral hernia Reviewed with Dr. Baker no concern for strangulation Monitor for symptoms, conservative management Nonspecific Transaminitis (Mild increased AST/ALT) Possibly multifactorial: post-op stress, medication-related, pancreatic tail involvement Monitor trend Continue checking the hepatic panel daily No hepatomegaly or jaundice on exam Hypertension Lisinopril restarted Amlodipine 10 mg daily added 09/04 PRN hydralazine Continue monitoring BP and electrolytes Hypokalemia, resolved Hypernatremia- Resolved Post-Operative Recovery Ambulating, tolerating full liquids Wound VAC intact PT/OT ongoing Code Status: KEANU Ulrich MD Internal Medicine Resident, PGY-2 Date of Service: Sep 11, 2024 Billing Provider: DAVID CACERES MD, GAURAV, RES Sep 11, 2024 11:23
[2024-09-11 18:00] VITALS: BP 108/59; PULSE 87; RESP 17; TEMP 98; O2SAT 96
--- NOTE | 2024-09-11 19:27 | PROGRESS NOTE ---
Progress Note Dictate Providers to CC CC: RAKESH MCHUGH MD ~ Progress Note: Patient is now two weeks status post exploratory laparotomy with a sigmoid colectomy, taken back to the operating room two days later for closure by Dr. Osvaldo Moe He finally seems to have return of GI function and is tolerating a regular diet in small amounts He tolerated about 30-40% of his diet today He has positive bowel function and his colostomy appliance and is slowly learning how to take care of this He needs referrals to [facility] for the following -Oncology -home health to assist with ostomy care and teaching His jessa can be removed in five days His retention sutures can be removed in two weeks I will see him again tomorrow Antibiotic Ordered?: No Objective Vitals Vital Signs Date Time Temp Pulse Resp B/P (MAP) Pulse Ox O2 Delivery O2 Flow Rate FiO2 09/11/24 10:00 97.3 84 16 107/69 (82) 93 09/11/24 08:00 Room Air 1.0 Lab Results: 09/11/24 0415 09/11/24 0415 Coagulation Studies Laboratory Tests Test 08/31/24 10:00 Activated Partial Thromboplast Time 31 SECONDS (22-32) Problem\Assessment\Plan Problems/Diagnosis: (1) Large bowel obstruction RAKESH MCHUGH MD Sep 11, 2024 19:27
[2024-09-11 20:00] VITALS: RESP 17; O2SAT 96
[2024-09-11 22:00] VITALS: BP 135/86; PULSE 69; RESP 18; TEMP 98.3; O2SAT 95
[2024-09-12 04:45] LABS: MEAN PLATELET VOLUME 10.9 FL (7.4-10.4); RED CELL DISTRIBUTION WIDTH 14.8 % (11.5-14.5)
[2024-09-12 05:05] LABS: CREATININE 0.91 MG/DL (0.60-1.10); PHOSPHORUS 2.8 MG/DL (2.3-4.5); TOTAL CARBON DIOXIDE 26.1 MMOL/L (24-32); eCRCL 67 ML/MIN; eGFR 81 ML/MIN
[2024-09-12 06:49] VITALS: BP 101/58; PULSE 53; RESP 14; TEMP 98.2; O2SAT 95
[2024-09-12 10:00] VITALS: RESP 14; O2SAT 95
[2024-09-12 10:43] VITALS: BP 116/62; PULSE 83; RESP 16; TEMP 97.5; O2SAT 94
[2024-09-12] MEDS ORDERED: NOR5T PO (10:49)
[2024-09-12] MEDS ORDERED: PANT40TA54 PO (10:49)
[2024-09-12] MEDS ORDERED: LACT1CAP26 PO (10:49)
[2024-09-12] MEDS ORDERED: METO5TAB85 PO (10:49)
--- NOTE | 2024-09-12 18:29 | DISCHARGE SUMMARY-Residence ---
Discharge Summary Providers to CC Resident Creating Document: CUKAY GUZMAN, RES ~ Discharge Summary Admission Diagnosis: S/P LAP/OPEN ABD Hospital Course DATE OF ADMISSION: 08/26/2024 DATE OF DISCHARGE: 09/12/2024 Discharge Diagnosis\Comment: Large Bowel Obstruction due to Colon Mass (Likely Colon Cancer) Status post exploratory laparotomy and sigmoid colectomy SBO secondary to last colonic mass Constipation / Post-Op Ileus Pancreatic Tail Hypoenhancement Ventral Hernia with Mild Stranding Nonspecific Transaminitis (Mild increased AST/ALT) Hypertension Hypokalemia Hypernatremia Operations\Procedures: Status post exploratory laparotomy and sigmoid colectomy Consultants: General surgery Reservation Manager care unit Complications: None Condition on DC: Stable New Medications: Lactobacillus Rhamnosus (Culturelle) 10 Billion Cell Capsule 1 CAP PO DAILY for 30 Days, #30 CAP 0 Refills Metoclopramide HCl (Reglan) 5 Mg Tablet 1 TAB PO Q8H for 15 Days, #45 TAB 0 Refills before food Pantoprazole Sodium (Pantoprazole Sodium) 40 Mg Tablet.dr 40 MG PO DAILY for 30 Days, #30 TAB.SR Amlodipine Besylate (Amlodipine Besylate) 5 Mg Tablet 10 MG PO DAILY for 30 Days, #30 TAB Continued Medications: Omeprazole (Prilosec) 40 Mg Capsule 1 CAP PO HS for 30 Days, #30 CAP Tamsulosin Hcl* (Flomax*) 0.4 Mg Cap.sr.24h 1 CAP PO HS for 30 Days, #30 CAP Discharge Summary: HPI as per admitting physician: Patient is 78-year-old male currently on Flomax and one indigestion pill. Patient is status post bilateral inguinal and ventral hernia repair which was done in 2008. He had his last colonoscopy around 62 years of age group which was normal. Patient was feeling nauseated but denied any episodes of vomiting and feeling fullness over abdomen. He mentioned to me that he is doing diet control but he feels that he is gaining weight. Abdomen pain is mainly located over ventral hernia site he is not able to pass the gas. Patient denied any fever or shaking chills. Patient's feels that since his prostate surgery he is urinating more and off and on incontinent. Patient denied any other symptoms no other associated or alleviating factors. Hospital course: Initial CT abdomen and pelvis showed fecal impaction and findings concerning for colonic obstruction. He subsequently underwent exploratory laparotomy and sigmoid colectomy on 08/29, followed by a re- exploration and serosal tear repair on 08/31. A wound VAC was placed and has remained intact, with the surgical incision healing appropriately. Postoperatively, the patient exhibited signs of ileus with minimal colostomy output and abdominal distension. A CT abdomen revealed interval left hemicolectomy with moderate small bowel distention and decompressed distal ileum, without a definitive transition point concerning for low-grade or early small bowel obstruction versus postoperative ileus. An abdominal X-ray on 09/05 showed mildly dilated small bowel loops up to 5.3 cm. The patient was managed conservatively with bowel rest, nasogastric decompression (NG tube removed on 09/03), and gradual advancement of diet. He was started on a full liquid diet on 09/[address] Banks orders, which he tolerated well. He received a single dose of milk of magnesia for persistent constipation, with clinical improvement in bowel sounds. Though he reported nausea at 2:00 a.m. on 09/11, there were no epi sodes of vomiting. Colostomy output has improved and he is now passing flatus, with softer abdomen and improved bowel sounds compared to previous exams. As of 09/11, the patient was transitioned to a regular diet and is tolerating oral intake. He is awake, alert, oriented, and resting comfortably without acute distress. PPN is planned to be weaned off this afternoon. Other notable findings during hospitalization include a pancreatic tail hypoenhancement seen on CT A/P, which may represent early focal inflammation or underlying malignancy. The patient has had no clinical signs or symptoms of pancreatitis, and lipase levels have remained normal. Outpatient MRI pancreas with contrast is being considered if clinically indicated. Additionally, a small to moderate supraumbilical fat-containing ventral hernia with mild surrounding stranding was noted on imaging. This was reviewed with Dr. Baker, who did not find concern for strangulation; conservative management was advised. Laboratory studies showed mild nonspecific transaminitis, possibly multifactorial due to postoperative stress, medications, or pancreatic involvement. Hepatic panel is being trended daily, with no signs of jaundice or hepatomegaly on physical exam. Electrolyte abnormalities including hypokalemia and hypernatremia have resolved with supportive care. Coagulation parameters including PTT have remained within normal limits. The patients hypertension has been managed with lisinopril (restarted during admission), amlodipine 10 mg daily added on 09/04, and PRN hydralazine as needed. Overall, the patient is clinically improving with good colostomy output, tolerance of a regular diet, resolution of electrolyte disturbances, and stable vital signs. He remains under close monitoring while awaiting final surgical pathology. Outpatient colonoscopy to be planned once the patient is more stable, and an oncology referral at [place]. Physical examination today: Awake , alert, and oriented x4, resting comfortably in the bed, in no acute distress HEENT: Atraumatic, normocephalic, EOMI, anicteric sclera ; pink conjunctiva Neck: Trachea midline. Supple, full range of motion, no JVD Cardiac: Regular rhythm, regular rate with no murmurs all over the precordium. Respiratory: Equal breath sounds bilaterally, no tachypnea, no wheezing ,rub or rales, Chest wall is symmetric and without deformity. Gastrointestinal: Left-sided colostomy site intact with no signs of infection, good output, softer abdomen today, improving bowel sounds Musculoskeletal: No edema no cyanosis Neurological: Speech is clear, alert, and oriented x 4. No motor or sensory deficit, deep tendon reflexes normal, cerebellar intact. Cranial nerves II-XII intact. Skin: Warm and dry Laboratory Tests Test 09/10/24 20:20 09/11/24 01:45 09/11/24 04:15 09/11/24 08:44 Glucometer 119 mg/dl 135 mg/dl 136 mg/dl White Blood Count 9.7 X10'3 Red Blood Count 3.88 X10'6 Hemoglobin 12.3 g/dl Hematocrit 36.6 % Mean Corpuscular Volume 94.5 FL Mean Corpuscular Hemoglobin 31.8 PG Mean Corpuscular Hemoglobin Concent 33.7 g/dL Red Cell Distribution Width 14.8 % Platelet Count 210 X10'3 Mean Platelet Volume 11.1 FL Neutrophils (%) (Auto) 78.4 % Lymphocytes (%) (Auto) 7.3 % Monocytes (%) (Auto) 12.5 % Eosinophils (%) (Auto) 1.1 % Basophils (%) (Auto) 0.7 % Neutrophils # (Auto) 7.6 X10'3 Lymphocytes # (Auto) 0.7 X10'3 Monocytes # (Auto) 1.2 X10'3 Eosinophils # (Auto) 0.1 X10'3 Basophils # (Auto) 0.1 X10'3 CBC Comment Sodium Level 133 MMOL/L Potassium Level 4.5 MMOL/L Chloride Level 100 MMOL/L Carbon Dioxide Level 23.7 MMOL/L Anion Gap 9 Blood Urea Nitrogen 26 MG/DL Creatinine 0.90 MG/DL Estimated GFR/1.73 m2 82 ML/MIN BUN/Creatinine Ratio 28.9 Glucose Level 120 MG/DL Calcium Level 9.3 MG/DL Phosphorus Level 3.3 MG/DL Total Bilirubin 0.8 MG/DL Aspartate Amino Transf (AST/SGOT) 51 U/L Alanine Aminotransferase (ALT/SGPT) 101 U/L Alkaline Phosphatase 68 IU/L Total Protein 6.4 G/DL Albumin 2.7 G/DL Globulin 3.7 G/DL Albumin/Globulin Ratio 0.7 Chemistry Comments Test 09/11/24 14:16 09/11/24 19:47 09/12/24 02:05 09/12/24 02:52 Glucometer 131 mg/dl 128 mg/dl 97 mg/dl 96 mg/dl Test 09/12/24 04:31 09/12/24 07:07 09/12/24 12:09 White Blood Count 6.9 X10'3 Red Blood Count 3.49 X10'6 Hemoglobin 11.0 g/dl Hematocrit 33.0 % Mean Corpuscular Volume 94.5 FL Mean Corpuscular Hemoglobin 31.6 PG Mean Corpuscular Hemoglobin Concent 33.4 g/dL Red Cell Distribution Width 14.8 % Platelet Count 166 X10'3 Mean Platelet Volume 10.9 FL Neutrophils (%) (Auto) 73.5 % Lymphocytes (%) (Auto) 8.7 % Monocytes (%) (Auto) 15.7 % Eosinophils (%) (Auto) 1.3 % Basophils (%) (Auto) 0.8 % Neutrophils # (Auto) 5.1 X10'3 Lymphocytes # (Auto) 0.6 X10'3 Monocytes # (Auto) 1.1 X10'3 Eosinophils # (Auto) 0.1 X10'3 Basophils # (Auto) 0.1 X10'3 CBC Comment Sodium Level 135 MMOL/L Potassium Level 4.4 MMOL/L Chloride Level 103 MMOL/L Carbon Dioxide Level 26.1 MMOL/L Anion Gap 6 Blood Urea Nitrogen 23 MG/DL Creatinine 0.91 MG/DL Estimated GFR/1.73 m2 81 ML/MIN BUN/Creatinine Ratio 25.3 Glucose Level 96 MG/DL Calcium Level 9.0 MG/DL Phosphorus Level 2.8 MG/DL Total Bilirubin 0.9 MG/DL Aspartate Amino Transf (AST/SGOT) 35 U/L Alanine Aminotransferase (ALT/SGPT) 74 U/L Alkaline Phosphatase 66 IU/L Total Protein 5.6 G/DL Albumin 2.4 G/DL Globulin 3.2 G/DL Albumin/Globulin Ratio 0.8 Prealbumin 17.9 MG/DL Triglycerides Level 50 MG/DL Chemistry Comments Glucometer 102 mg/dl 99 mg/dl Advise on discharge: Activity as tolerated No lifting more than 15 lb for four weeks Nick can be removed on MondaySeptember 16 Sutures/stitches can be removed on September 30 Diet as tolerated Milk of magnesia for constipation It is important to follow up with Oncology at [place] It is important to follow up with a primary care doctor May shower and, should shower, daily *Problems/Diagnosis: (1) Respiratory failure (2) Large bowel obstruction Total Time Spent on D/C: Up to 30 Minutes Date of Service: Sep 12, 2024 Billing Provider: DAVID CACERES MD Problem Qualifiers (1) Respiratory failure: Chronicity: acute Respiratory failure complication: hypoxia Qualified Codes: J96.01 - Acute respiratory failure with hypoxia KAY ULRICH, RES Sep 12, 2024 18:25
== END 2024-09-12 16:55 | disposition home or self-care (01) | DRG 329 ==
LOC: ER 09:50 → ED HOLD 15:00 → ORTHO 4S 16:29 → CICU 2S 08-29 19:06 → SUR 3N 09-03 10:18
PROVIDERS: ADMIT Internal Medicine; ATTEND Internal Medicine
PROC: BW211ZZ Computerized Tomography (CT Scan) of Abdomen and Pelvis using Low Osmolar Contrast (ICD-10-PCS; 2024-08-26)
PROC: 0DBL0ZZ Excision of Transverse Colon, Open Approach (ICD-10-PCS; 2024-08-29)
PROC: 0WBH0ZX Excision of Retroperitoneum, Open Approach, Diagnostic (ICD-10-PCS; 2024-08-29)
PROC: 0BH17EZ Insertion of Endotracheal Airway into Trachea, Via Natural or Artificial Opening (ICD-10-PCS; 2024-08-29)
PROC: 5A1945Z Respiratory Ventilation, 24-96 Consecutive Hours (ICD-10-PCS; 2024-08-29)
PROC: 0D1N0Z4 Bypass Sigmoid Colon to Cutaneous, Open Approach (ICD-10-PCS; principal; 2024-08-29 16:39)
PROC: 0DQH0ZZ Repair Cecum, Open Approach (ICD-10-PCS; 2024-08-31)
PROC: 0DQF0ZZ Repair Right Large Intestine, Open Approach (ICD-10-PCS; 2024-08-31)
PROC: 0DQP0ZZ Repair Rectum, Open Approach (ICD-10-PCS; 2024-08-31)
PROC: 5A09357 Assistance with Respiratory Ventilation, Less than 24 Consecutive Hours, Continuous Positive Airway Pressure (ICD-10-PCS; 2024-09-01)
PROC: 0D9670Z Drainage of Stomach with Drainage Device, Via Natural or Artificial Opening (ICD-10-PCS; 2024-09-02)
DX: K43.6 Other and unspecified ventral hernia with obstruction, without gangrene (principal); A41.9 Sepsis, unspecified organism; J96.01 Acute respiratory failure with hypoxia; K63.1 Perforation of intestine (nontraumatic); C25.9 Malignant neoplasm of pancreas, unspecified; K56.7 Ileus, unspecified; E87.1 Hypo-osmolality and hyponatremia; C18.9 Malignant neoplasm of colon, unspecified; Z66 Do not resuscitate; K59.09 Other constipation; N40.0 Benign prostatic hyperplasia without lower urinary tract symptoms; R74.01 Elevation of levels of liver transaminase levels; E87.6 Hypokalemia; I10 Essential (primary) hypertension; I48.91 Unspecified atrial fibrillation; K21.9 Gastro-esophageal reflux disease without esophagitis; Y92.89 Other specified places as the place of occurrence of the external cause; Z85.46 Personal history of malignant neoplasm of prostate
CPT/HCPCS: 36415; 36600; 71045; 74018; 74176; 74177; 74183; 80048; 80053; 82550; 82803; 82948; 83605; 83690; 83735; 84100; 84132; 84134; 84145; 84478; 85007; 85018; 85025; 85027; 85651; 85730; 86301; 86885; 86900; 86901; 87070; 87081; 93005; 94002; 94003; 94760; 97110; 97116; 97162; 97530; 99285; A4215; A4333; A4371; A4421; A4615; A4618; A4649; A5200; A6213; A6253; A6258; A6266; A6407; A6449; A7000; C1751; C1758; G0378; J0282; J0360; J0694; J2003; J2250; J2270; J2405; J2543; J2704; J2765; J3010; J3480; J3490; J7030; J7040; J7042; J7060; J7120; P9045; Q9963; Q9967